=== PATIENT | female | born 1960 | race African-American/Black ===

== ENCOUNTER 2021-01-06 15:43 | Outpatient (REF) | payer OTHER, SELFPAY ==
--- NOTE | ~2021-01-06 | MM_ITS ---
EXAMINATION: MM SCREENING DIGITAL BREAST TOMOSYNTHESIS, BILATERAL CLINICAL INFORMATION: Screening. Asymptomatic. The lifetime risk of breast cancer based on the Tyrer-Cuzick Model is 9%. COMPARISON: Mammography: 04/29/2018, outside exam 01/20/2014 ([place]). TECHNIQUE: Digital breast tomosynthesis is performed in both the craniocaudal and mediolateral oblique views along with computer-aided detection (CAD). Synthesized 2D images are generated from the tomosynthesis. Additional left CC view is provided. FINDINGS: There are scattered areas of fibroglandular density (ACR BI-RADS breast composition Category b). There are no significant masses, abnormal calcifications, or other abnormalities. Parenchymal pattern is similar to prior studies. The axilla and skin contours are unremarkable. No significant changes. MM/MM tomosynthesis screening BI IMPRESSION: No mammographic evidence of malignancy. ASSESSMENT: BI-RADS 1: Negative RECOMMENDATION: Routine annual mammography screening. This patient's information was entered into a reminder system with a target due date for their next mammogram.
== END 2021-01-06 15:44 | disposition home or self-care (01) ==
LOC: HO.MAMMO 15:43
PROVIDERS: PCP Internal Medicine; Visit Provider Advanced Practice Midwife
DX: Z12.31 Encounter for screening mammogram for malignant neoplasm of breast (principal)
CPT/HCPCS: 77063; 77067

== ENCOUNTER 2021-03-10 13:25 | Emergency (ER) | payer OTHER, SELFPAY ==
--- NOTE | ~2021-03-10 | XR_ITS ---
EXAMINATION: XR CERVICAL SPINE CLINICAL INFORMATION: Chronic left upper extremity numbness and pain COMPARISON: None TECHNIQUE: 3 views of the cervical spine were obtained. FINDINGS: Bone alignment is normal. No fracture or dislocation is seen. There is degenerative spondylosis and degenerative disc disease from C3-C4 to C6-C7. 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 Prevertebral soft tissues are normal. XR/XR cervical spine 3V IMPRESSION: Multilevel degenerative changes.
--- NOTE | ~2021-03-10 | CT_ITS ---
EXAMINATION: CTA CHEST PE STUDY CLINICAL INFORMATION: L sided pain r/o PE COMPARISON: No pertinent prior studies are available for comparison. TECHNIQUE: Prior to contrast administration, noncontrast localization images were obtained. After the administration of 70 mL of Omnipaque 350 IV contrast, contiguous thin slice helical images were obtained through the thorax. Reformatted MIP images in the coronal and sagittal planes were obtained at the acquisition workstation. This CT examination was performed using dose optimization techniques as appropriate, variously including the following: *Automated exposure control *Adjustment of mA and/or kV according to patient size (this includes techniques or standardized protocols for targeted exams where dose is matched to indication/reason for exam; i.e. extremities or head) *Use of iterative reconstruction technique DLP: 439 mGy-cm. FINDINGS: The bolus timing on this study was acceptable for visualization of the pulmonary arterial tree. There are no intraluminal pulmonary arterial filling defects present to suggest pulmonary embolism. The lungs are clear. No abnormal pulmonary nodules or masses are appreciated. No significant hilar or mediastinal adenopathy. There is no evidence of pleural effusion or pneumothorax. The heart is normal in size. No evidence of ventricular septal bowing or right heart strain. Great vessels are normal. Otherwise the mediastinum is unremarkable. There is no pericardial effusion or pericardial thickening. Limited evaluation of the upper abdominal viscera is unremarkable. CT/CT angio chest PE protocol IMPRESSION: No evidence for pulmonary emboli. No focal airspace disease. VTE: Negative
--- NOTE | ~2021-03-10 | XR_ITS ---
EXAMINATION: XR CHEST CLINICAL INFORMATION: Chest pain COMPARISON: Chest x-ray September 06, 2018 TECHNIQUE: Frontal view of the chest was obtained. 1559 hours FINDINGS: No significant abnormality is noted involving the heart, lungs, mediastinum, bony thorax or soft tissues. XR/XR chest 1V IMPRESSION: Unremarkable examination.
[2021-03-10 13:36] VITALS: BP 125/68; PULSE 83; RESP 18; TEMP 37.1; O2SAT 98; BMI 41.1
--- NOTE | 2021-03-10 15:43 | ED.GENADULT ---
HPI - General Adult General Chief complaint: General Medical Stated complaint: CHEST PRESSURE Time Seen by Provider: 03/10/21 15:41 Source: patient Mode of arrival: ambulatory Limitations: no limitations History of Present Illness HPI narrative: 61 yo female with HTN was on the phone felt a pop in her back then felt short of breath then pressure on her chest upper abdomen hot flashes, this lasted approx 15 to 30 minutes and it was improved MD complaint: chest pain Onset (ago): hour(s) (2pm today) Location: chest and abdomen Radiation: other (felt it in her arm though has had chronic L arm pain and tingling since October) Quality: dull and constant Pain Consistency: now resolved Relieving factors: none Exacerbating factors: movement Associated symptoms: shortness of breath Treatments prior to arrival: none Related Data Allergies Allergy/AdvReac Type Severity Reaction Status Date / Time No Known Allergies Allergy Unverified 05/09/20 15:40 [No Known Allergies*] Review of Systems Review of Systems: Constitutional : No Weight loss, No Fever, No Chills ENT/Mouth : No sore throat, No Rhinorrhea Eyes: No Eye Pain, No Swelling Cardiovascular : pos Chest Pain, pos SOB, no Dyspnea on Exertion, No Orthopnea, No Edema, No Palpitations Respiratory : No Cough, No Sputum Gastrointestinal : no Nausea, No Vomiting, No Diarrhea, No abdominal Pain, No Hematochezia, No Melena Genitourinary : No Dysuria, No Urinary Frequency Musculoskeletal : No joint pain, No Myalgias, No Joint Swelling Skin : No Skin Lesions, No rash Neuro : No Weakness, No Numbness, No Dizziness, No Headache Psych : No Anxiety/Panic, No Depression Heme/Lymph: No Bruising, No Lymphadenopathy Endocrine : No Polyuria, No Polydipsia All other systems reviewed and are negative [facility] Past Medical History Attestation statement: The following information was validated with the patient. Medical History Hypertension Surgical History Total knee replacement status Social History Social History (Updated 03/10/21 @ 16:10 by Shiloh Juinor DO) Patient Tobacco Use Status: Never used Tobacco Use of substances other than those prescribed or required for medical reasons: No Advance Directives: No Advance Directives Information Provided: Yes Patient : No Physical Exam Vital Signs: Vital Signs: Last Vital Signs Temp 98.2 F 03/10/21 18:30 Pulse 75 03/10/21 18:30 Resp 16 03/10/21 18:30 BP 115/70 03/10/21 18:30 Pulse Ox 99 03/10/21 18:30 Body Mass Index 41.1 Appearance: Alert. Oriented X3. No acute distress. Eyes: Pupils equal, round and reactive to light. ENT: Pharynx normal. Neck: Normal inspection. Neck supple. CVS: Normal heart rate and rhythm. Pulses normal. Respiratory: No respiratory distress. Breath sounds normal. Abdomen: Soft and non-tender. Back: ttp upper left back under scapula Skin: Skin warm and dry. Normal skin color. Normal skin turgor. Extremities: No lower extremity edema. No calf ttp has puffiness to extremities but states this has been several years and there is no pitting edema noted Neuro: Oriented X 3. No motor deficit. No sensory deficit. Course Course Course Narrative: ddimer above threshold - CTA for PE ordered CTA negative, repeat trop flat, has no symptoms, repeat EKG nonischemic stable for DC Medical Decision Making [facility] Narrative Medical decision making narrative: 61 yo female with hx of HTN here with c/o resolved upper back pain and chest pain that resolved at rest, at this time feels better will obtain labs, troponin x 2, CXR, ddimer, has no symptoms now - dispo per results and findings. Lab Data Result diagrams: 03/10/21 16:31 03/10/21 16:31 Labs: Lab Results 03/10/21 03/10/21 03/10/21 Range/Units 16:31 16:31 16:31 WBC 8.6 (4.8-10.8) X10*3/uL RBC 4.16 L (4.20-5.50) X10*6/uL Hgb 11.6 L (12.0-16.0) g/dl Hct 33.9 L (37-47) % MCV 81.5 (80-98) fL MCH 27.9 (27.0-33.0) pg MCHC 34.2 (31.0-35.0) g/dl RDW 14.9 (11.0-16.0) % Plt Count 286 (160-400) X10*3/uL MPV 9.2 L (9.4-12.3) fL Immature Gran % (Auto) 0.5 H (0.0-0.4) % Neut % (Auto) 66.7 (45-73) % Lymph % (Auto) 20.7 (20-40) % Kendall % (Auto) 6.6 (2-11) % Eos % (Auto) 4.7 H (0-4) % Baso % (Auto) 0.8 (0-2) % Lymph # (Auto) 1.8 (1.2-4.9) X10*3/uL Kendall # (Auto) 0.6 (0.1-1.2) X10*3/uL Eos # (Auto) 0.4 (0.0-0.4) X10*3/uL Baso # (Auto) 0.1 (0.0-0.2) X10*3/uL Abs Immat Gran (auto) 0.04 H (0.00-0.03) X10*3/uL Absolute Neuts (auto) 5.7 (2.0-8.3) X10*3/uL Absolute Nucleated RBC 0.000 (0.0-0.012) X10*3/uL Nucleated RBC % (auto) 0.0 (0.0-0.2) /100WBC D-Dimer 256 NG/ML Sodium 140 (135-145) mmol/L Potassium 4.2 (3.3-5.1) mmol/L Chloride 105 (96-108) mmol/L Carbon Dioxide 24 (22-29) mmol/L Anion Gap 15 (12-20) BUN 16 (9-16) mg/dL Creatinine 0.98 (0.5-1.4) mg/dL Estim Creat Clear Calc 77.0 Estimated GFR 58 Random Glucose 97 (60-115) mg/dL Calcium 10.1 (8.4-10.2) mg/dL Magnesium 2.0 (1.6-2.6) mg/dL Total Bilirubin 0.4 (0.0-1.0) mg/dL Direct Bilirubin 0.2 (0.0-0.5) mg/dL AST 20 (5-31) U/L ALT 19 (0-31) U/L Alkaline Phosphatase 115 (39-117) U/L Troponin I High Sens (<3.5-17.0) ng/L B-Natriuretic Peptide (<100) pg/mL Total Protein 7.3 (6.5-8.0) g/dL Albumin 4.2 (3.5-5.0) g/dL Lipase 83 H (8-78) U/L TSH (0.32-4.0) uIU/mL 03/10/21 03/10/21 03/10/21 Range/Units 16:31 16:31 16:31 WBC (4.8-10.8) X10*3/uL RBC (4.20-5.50) X10*6/uL Hgb (12.0-16.0) g/dl Hct (37-47) % MCV (80-98) fL MCH (27.0-33.0) pg MCHC (31.0-35.0) g/dl RDW (11.0-16.0) % Plt Count (160-400) X10*3/uL MPV (9.4-12.3) fL Immature Gran % (Auto) (0.0-0.4) % Neut % (Auto) (45-73) % Lymph % (Auto) (20-40) % Kendall % (Auto) (2-11) % Eos % (Auto) (0-4) % Baso % (Auto) (0-2) % Lymph # (Auto) (1.2-4.9) X10*3/uL Kendall # (Auto) (0.1-1.2) X10*3/uL Eos # (Auto) (0.0-0.4) X10*3/uL Baso # (Auto) (0.0-0.2) X10*3/uL Abs Immat Gran (auto) (0.00-0.03) X10*3/uL Absolute Neuts (auto) (2.0-8.3) X10*3/uL Absolute Nucleated RBC (0.0-0.012) X10*3/uL Nucleated RBC % (auto) (0.0-0.2) /100WBC D-Dimer NG/ML Sodium (135-145) mmol/L Potassium (3.3-5.1) mmol/L Chloride (96-108) mmol/L Carbon Dioxide (22-29) mmol/L Anion Gap (12-20) BUN (9-16) mg/dL Creatinine (0.5-1.4) mg/dL Estim Creat Clear Calc Estimated GFR Random Glucose (60-115) mg/dL Calcium (8.4-10.2) mg/dL Magnesium (1.6-2.6) mg/dL Total Bilirubin (0.0-1.0) mg/dL Direct Bilirubin (0.0-0.5) mg/dL AST (5-31) U/L ALT (0-31) U/L Alkaline Phosphatase (39-117) U/L Troponin I High Sens 23.4 H* (<3.5-17.0) ng/L B-Natriuretic Peptide 30 (<100) pg/mL Total Protein (6.5-8.0) g/dL Albumin (3.5-5.0) g/dL Lipase (8-78) U/L TSH 0.57 (0.32-4.0) uIU/mL 03/10/21 Range/Units 18:49 WBC (4.8-10.8) X10*3/uL RBC (4.20-5.50) X10*6/uL Hgb (12.0-16.0) g/dl Hct (37-47) % MCV (80-98) fL MCH (27.0-33.0) pg MCHC (31.0-35.0) g/dl RDW (11.0-16.0) % Plt Count (160-400) X10*3/uL MPV (9.4-12.3) fL Immature Gran % (Auto) (0.0-0.4) % Neut % (Auto) (45-73) % Lymph % (Auto) (20-40) % Kendall % (Auto) (2-11) % Eos % (Auto) (0-4) % Baso % (Auto) (0-2) % Lymph # (Auto) (1.2-4.9) X10*3/uL [place] # (Auto) (0.1-1.2) X10*3/uL Eos # (Auto) (0.0-0.4) X10*3/uL Baso # (Auto) (0.0-0.2) X10*3/uL Abs Immat Gran (auto) (0.00-0.03) X10*3/uL Absolute Neuts (auto) (2.0-8.3) X10*3/uL Absolute Nucleated RBC (0.0-0.012) X10*3/uL Nucleated RBC % (auto) (0.0-0.2) /100WBC D-Dimer NG/ML Sodium (135-145) mmol/L Potassium (3.3-5.1) mmol/L Chloride (96-108) mmol/L Carbon Dioxide (22-29) mmol/L Anion Gap (12-20) BUN (9-16) mg/dL Creatinine (0.5-1.4) mg/dL Estim Creat Clear Calc Estimated GFR Random Glucose (60-115) mg/dL Calcium (8.4-10.2) mg/dL Magnesium (1.6-2.6) mg/dL Total Bilirubin (0.0-1.0) mg/dL Direct Bilirubin (0.0-0.5) mg/dL AST (5-31) U/L ALT (0-31) U/L Alkaline Phosphatase (39-117) U/L Troponin I High Sens 24.9 H* (<3.5-17.0) ng/L B-Natriuretic Peptide (<100) pg/mL Total Protein (6.5-8.0) g/dL Albumin (3.5-5.0) g/dL Lipase (8-78) U/L TSH (0.32-4.0) uIU/mL ECG Data Attestation: I personally reviewed and interpreted this ECG as follows: Interpretation: Rate: 64 Rhythm: NSR [place]: left, LVH Normal P waves. Normal CHARLEEN. Normal QRS complex. ST T wave : nonspecific, no MINA qTC: normal prior studies: nonspecific changes flatter t waves slightly increased from 2019 The study has been interpreted contemporaneously by me. EKG #2 Rate: 54 Rhythm: sinus bradycardia [place]: normal LVH Normal P waves. Normal CHARLEEN. Normal QRS complex. ST T wave : normal no MINA qTC: normal prior studies: stickers were moved by tech in better position, no acute ischemia no change from priors The study has been interpreted contemporaneously by me. . Scores Heart Score History: -0- slightly suspicious ECG: -0- normal Age: -1- >45 - <65 Risk factory: -1- 1 or 2 risk factors Troponin: -0- < or = normal limit Score: 2 Risk: 1.7% Discharge Plan Discharge Clinical Impression: Chest pain Qualifiers: Chest pain type: unspecified Qualified Code(s): R07.9 - Chest pain, unspecified Patient Disposition: Home, Self-Care Instructions: Chest Pain (ED) Additional Instructions: return to ED for any worsening symptoms or concerns TECHNIQUE: 3 views of the cervical spine were obtained. FINDINGS: Bone alignment is normal. No fracture or dislocation is seen. There is degenerative spondylosis and degenerative disc disease from C3-C4 to C6-C7. 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 Prevertebral soft tissues are normal. XR/XR cervical spine 3V IMPRESSION: Multilevel degenerative changes. Referrals: Araseli Gutierrez MD [Primary Care Provider] - 2 days (follow up with outpatient stress test given your family's risk factors)
[2021-03-10 16:37] LABS: MANUAL DIFF FLAG NO
[2021-03-10 16:39] LABS: Basophils Absolute Auto 0.1 X10*3/uL (0.0-0.2); Basophils Percent Auto 0.8 % (0-2); Eosinophils Absolute Auto 0.4 X10*3/uL (0.0-0.4); Eosinophils Percent Auto 4.7 % (0-4); Hematocrit 33.9 % (37-47); Hemoglobin 11.6 g/dl (12.0-16.0); Imm Gran Abs Auto 0.04 X10*3/uL (0.00-0.03); Imm Gran Pct Auto 0.5 % (0.0-0.4); Lymphocytes Absolute Auto 1.8 X10*3/uL (1.2-4.9); Lymphocytes Percent Auto 20.7 % (20-40); Mean Corpuscular HGB Conc 34.2 g/dl (31.0-35.0); Mean Corpuscular Hemoglobin 27.9 pg (27.0-33.0); Mean Corpuscular Volume 81.5 fL (80-98); Mean Platelet Volume 9.2 fL (9.4-12.3); Monocytes Absolute Auto 0.6 X10*3/uL (0.1-1.2); Monocytes Percent Auto 6.6 % (2-11); Neutrophils Absolute Auto 5.7 X10*3/uL (2.0-8.3); Neutrophils Percent Auto 66.7 % (45-73); Platelet Count 286 X10*3/uL (160-400); Red Blood Count 4.16 X10*6/uL (4.20-5.50); Red Cell Distribution Width 14.9 % (11.0-16.0); White Blood Count 8.6 X10*3/uL (4.8-10.8)
[2021-03-10 16:48] LABS: D Dimer 256 NG/ML
[2021-03-10 17:05] LABS: Alanine Aminotransferase 19 U/L (0-31); Albumin Level 4.2 g/dL (3.5-5.0); Alkaline Phosphatase 115 U/L (39-117); Anion Gap 15 (12-20); Aspartate Amino Transferase 20 U/L (5-31); B Type Natriuretic Peptide 30 pg/mL (<100); Bilirubin Direct 0.2 mg/dL (0.0-0.5); Bilirubin Total 0.4 mg/dL (0.0-1.0); Blood Urea Nitrogen 16 mg/dL (9-16); Calcium 10.1 mg/dL (8.4-10.2); Carbon Dioxide 24 mmol/L (22-29); Chloride 105 mmol/L (96-108); Estimated Glomerular Filt Rate 58; Glucose Random 97 mg/dL (60-115); Lipase 83 U/L (8-78); Potassium 4.2 mmol/L (3.3-5.1); Sodium 140 mmol/L (135-145); Total Protein 7.3 g/dL (6.5-8.0)
[2021-03-10 17:06] LABS: Troponin-I High Sensitivity 23.4 ng/L (<3.5-17.0)
[2021-03-10 17:21] LABS: TSH reflex Free T4 0.57 uIU/mL (0.32-4.0)
[2021-03-10] MEDS: Aspirin 81 MG TAB.CHEW 162 MG PO (17:48)
[2021-03-10] MEDS: iohexoL 350 MG/ML 100 ML INFUS..BTL IV (18:04)
[2021-03-10 18:30] VITALS: BP 115/70; PULSE 75; RESP 16; TEMP 36.8; O2SAT 99
[2021-03-10 19:28] LABS: Troponin-I High Sensitivity 24.9 ng/L (<3.5-17.0)
--- NOTE | 2021-03-10 19:36 | ECG_ITS ---
Test Reason : CP Blood Pressure : / mmHG Vent. Rate : 054 BPM Atrial Rate : 054 BPM P-R Int : 160 ms QRS Dur : 082 ms QT Int : 480 ms P-R-T Axes : 054 005 026 degrees QTc Int : 455 ms Sinus bradycardia with Premature atrial complexes Minimal voltage criteria for LVH, may be normal variant Borderline ECG When compared with ECG of 10-MAR-2021 14:06, Premature atrial complexes are now Present Referred By: Shiloh Junior Electronically Signed By:ISABEL CLARKE MD
--- NOTE | 2021-03-10 19:37 | ECG_ITS ---
Test Reason : CHEST PAIN Blood Pressure : / mmHG Vent. Rate : 064 BPM Atrial Rate : 064 BPM P-R Int : 156 ms QRS Dur : 078 ms QT Int : 404 ms P-R-T Axes : 067 004 030 degrees QTc Int : 416 ms Normal sinus rhythm with sinus arrhythmia Minimal voltage criteria for LVH, may be normal variant Nonspecific T wave abnormality Abnormal ECG When compared with ECG of 09-FEB-2019 10:05, No significant change was found Referred By: Shiloh Junior Electronically Signed By:ISABEL CLARKE MD
== END 2021-03-10 19:56 | disposition home or self-care (01) ==
PROVIDERS: Emergency Provider Emergency Medicine; PCP Internal Medicine
DX: R07.9 Chest pain, unspecified (principal); I10 Essential (primary) hypertension
CPT/HCPCS: 36415; 71045; 71275; 72040; 80048; 80076; 83690; 83735; 83880; 84443; 84484; 85025; 85379; 93005; 99284; Q9967

== ENCOUNTER → 2021-05-15 15:27 | Outpatient (BNVA) | payer OTHER, SELFPAY | PROVIDERS: PCP Internal Medicine; Visit Provider Surgery Vascular Surgery ==

== ENCOUNTER 2021-06-05 12:57 | Outpatient (REF) | payer OTHER, SELFPAY ==
--- NOTE | ~2021-06-05 | US_ITS ---
EXAMINATION: US VENOUS DOPPLER LOWER EXTREMITY, BILATERAL CLINICAL INFORMATION: Bilateral lower extremity varicose veins. COMPARISON: None TECHNIQUE: Color-flow triplex imaging and compression Doppler were performed to evaluate both the deep and the superficial systems bilaterally. To evaluate the superficial system, the examination was performed in the upright position. Color-flow Doppler ultrasound and compression ultrasound were utilized. In addition, maneuvers were utilized to demonstrate reflux. FINDINGS: 1. DEEP VENOUS ULTRASOUND OF THE RIGHT LOWER EXTREMITY: Common Femoral Vein: Compressible, normal respiratory variation and augmented flow. Femoral Vein: Compressible, normal color flow and augmentation. Popliteal Vein: Compressible, normal augmentation. Deep Reflux: There is no evidence of reflux in the deep system in either the common femoral vein or the popliteal vein. There is no evidence of a Goel's cyst. 2. SUPERFICIAL ULTRASOUND WITH DOPPLER OF RIGHT LOWER EXTREMITY GREAT SAPHENOUS VEIN: Saphenofemoral Junction: 0.9 cm; reflux: No evidence of reflux. Max Diameter: 0.9 Min Diameter: 0.3 Reflux: No evidence of reflux. DUPLICATED MEDIAL GREAT SAPHENOUS VEIN: Max Diameter: None imaged Reflux: N/A DUPLICATED LATERAL GREAT SAPHENOUS VEIN: Diameter: 0.3 cm Reflux: No reflux. SMALL SAPHENOUS VEIN: Saphenopopliteal Junction: 0.4 cm; reflux: No evidence of reflux. Min Diameter: 0.2 Reflux: No evidence of reflux. VEIN OF GIACOMINI: None imaged. PERFORATORS: Location: Proximal and mid calf, measuring 3 mm each. Reflux: No reflux. VARICOSITIES: Location: None imaged. Reflux: N/A 3. DEEP VENOUS ULTRASOUND OF THE LEFT LOWER EXTREMITY: Common Femoral Vein: Compressible, normal respiratory variation and augmented flow. Femoral Vein: Compressible, normal color flow and augmentation. Popliteal Vein: Compressible, normal augmentation. Deep Reflux: There is no evidence of reflux in the deep system in either the common femoral vein or the popliteal vein. There is no evidence of a Goel's cyst. 4. SUPERFICIAL ULTRASOUND WITH DOPPLER OF LEFT LOWER EXTREMITY GREAT SAPHENOUS VEIN: Saphenopopliteal Junction/Proximal Thigh: 0.5 cm; reflux: Greater than 3 seconds of reflux. Max Diameter: 0.5 Min Diameter: 0.2 Reflux: There is reflux present within the proximal thigh, and at the knee. DUPLICATED MEDIAL GREAT SAPHENOUS VEIN: Max Diameter: 0.4 cm Reflux: No reflux. DUPLICATED LATERAL GREAT SAPHENOUS VEIN: Diameter: None imaged. Reflux: N/A SMALL SAPHENOUS VEIN: Saphenofemoral Junction: 0.3 cm; reflux: No evidence of reflux. Min Diameter: 0.1 Reflux: No evidence of reflux. VEIN OF GIACOMINI: None imaged. PERFORATORS: Location: Proximal calf measuring 3 mm. Reflux: Greater than 3 seconds of reflux. VARICOSITIES: Location: None imaged. Reflux: N/A US/US venous duplex LE BI IMPRESSION: 1. Left great saphenous venous insufficiency. 2. No evidence of right great saphenous venous insufficiency. 3. No evidence of small saphenous venous insufficiency involving either leg. 4. No evidence of deep venous insufficiency or DVT.
== END 2021-06-05 12:58 | disposition home or self-care (01) ==
LOC: HO.US 12:57
PROVIDERS: PCP Internal Medicine; Visit Provider Surgery Vascular Surgery
DX: I83.893 Varicose veins of bilateral lower extremities with other complications (principal); I83.11 Varicose veins of right lower extremity with inflammation
CPT/HCPCS: 93970

== ENCOUNTER 2022-02-09 09:27 | Outpatient (REF) | payer OTHER, SELFPAY ==
--- NOTE | ~2022-02-09 | XR_ITS ---
EXAMINATION: XR KNEE, RIGHT XR KNEE, LEFT XR KNEE STANDING, BILATERAL CLINICAL INFORMATION: Pain COMPARISON: Lateral knee radiograph from 03/19/2020 TECHNIQUE: Single view of the bilateral knees standing, 2 views of each knee FINDINGS: RIGHT: No acute visible fracture or dislocation. Moderate severe multicompartment degenerative changes. Severe narrowing of the medial femorotibial compartment. Moderate narrowing of the lateral patellofemoral compartment. Periarticular aspect along the superior inferior margins patella as well as tibial plateau and distal femoral condyle. Joint spaces and alignment are otherwise maintained. No large knee joint effusion. Soft tissues are unremarkable. LEFT: Status post left knee arthroplasty. Orthopedic hardware is grossly intact. Joint spaces and alignment are maintained. No large knee joint effusion. Soft tissues are unremarkable. XR/XR knee LT 2V IMPRESSION: 1. No acute visible fracture or dislocation. 2. Right-sided moderate to severe multicompartment degenerative changes. 3. Status post left knee arthroplasty with intact orthopedic hardware.
--- NOTE | ~2022-02-09 | XR_ITS ---
EXAMINATION: XR KNEE, RIGHT XR KNEE, LEFT XR KNEE STANDING, BILATERAL CLINICAL INFORMATION: Pain COMPARISON: Lateral knee radiograph from 03/19/2020 TECHNIQUE: Single view of the bilateral knees standing, 2 views of each knee FINDINGS: RIGHT: No acute visible fracture or dislocation. Moderate severe multicompartment degenerative changes. Severe narrowing of the medial femorotibial compartment. Moderate narrowing of the lateral patellofemoral compartment. Periarticular aspect along the superior inferior margins patella as well as tibial plateau and distal femoral condyle. Joint spaces and alignment are otherwise maintained. No large knee joint effusion. Soft tissues are unremarkable. LEFT: Status post left knee arthroplasty. Orthopedic hardware is grossly intact. Joint spaces and alignment are maintained. No large knee joint effusion. Soft tissues are unremarkable. XR/XR knee RT 2V IMPRESSION: 1. No acute visible fracture or dislocation. 2. Right-sided moderate to severe multicompartment degenerative changes. 3. Status post left knee arthroplasty with intact orthopedic hardware.
--- NOTE | ~2022-02-09 | XR_ITS ---
EXAMINATION: XR KNEE, RIGHT XR KNEE, LEFT XR KNEE STANDING, BILATERAL CLINICAL INFORMATION: Pain COMPARISON: Lateral knee radiograph from 03/19/2020 TECHNIQUE: Single view of the bilateral knees standing, 2 views of each knee FINDINGS: RIGHT: No acute visible fracture or dislocation. Moderate severe multicompartment degenerative changes. Severe narrowing of the medial femorotibial compartment. Moderate narrowing of the lateral patellofemoral compartment. Periarticular aspect along the superior inferior margins patella as well as tibial plateau and distal femoral condyle. Joint spaces and alignment are otherwise maintained. No large knee joint effusion. Soft tissues are unremarkable. LEFT: Status post left knee arthroplasty. Orthopedic hardware is grossly intact. Joint spaces and alignment are maintained. No large knee joint effusion. Soft tissues are unremarkable. XR/XR knee standing BI IMPRESSION: 1. No acute visible fracture or dislocation. 2. Right-sided moderate to severe multicompartment degenerative changes. 3. Status post left knee arthroplasty with intact orthopedic hardware.
== END 2022-02-09 09:28 | disposition home or self-care (01) ==
LOC: HO.HOSX 09:27
PROVIDERS: Visit Provider Orthopaedic Surgery
DX: M25.562 Pain in left knee (principal); M25.561 Pain in right knee
CPT/HCPCS: 73560; 73565

== ENCOUNTER 2022-07-21 09:20 | Outpatient (REF) | payer OTHER, SELFPAY ==
[2022-07-21 09:46] LABS: MANUAL DIFF FLAG NO
[2022-07-21 10:05] LABS: Basophils Absolute Auto 0.1 X10*3/uL (0.0-0.2); Basophils Percent Auto 1.5 % (0-2); Eosinophils Absolute Auto 0.5 X10*3/uL (0.0-0.4); Eosinophils Percent Auto 8.5 % (0-4); Hematocrit 34.9 % (37.0-47.0); Hemoglobin 11.8 g/dl (12.0-16.0); Imm Gran Abs Auto 0.02 X10*3/uL (0.00-0.03); Imm Gran Pct Auto 0.3 % (0.0-0.4); Lymphocytes Percent Auto 32.7 % (20-40); Mean Corpuscular HGB Conc 33.8 g/dl (31.0-35.0); Mean Corpuscular Hemoglobin 28.1 pg (27.0-33.0); Mean Corpuscular Volume 83.1 fL (80.0-98.0); Mean Platelet Volume 8.8 fL (9.4-12.3); Monocytes Absolute Auto 0.4 X10*3/uL (0.1-1.2); Monocytes Percent Auto 7.3 % (2-11); Neutrophils Percent Auto 49.7 % (45-73); Platelet Count 276 X10*3/uL (160-400); Red Cell Distribution Width 13.9 % (11.0-16.0)
[2022-07-21 11:08] LABS: Alanine Aminotransferase 25 U/L (0-31); Alkaline Phosphatase 113 U/L (39-117); Anion Gap 17 (12-20); Aspartate Amino Transferase 20 U/L (5-31); Bilirubin Total 0.5 mg/dL (0.0-1.0); Blood Urea Nitrogen 11 mg/dL (9-16); Calcium 9.8 mg/dL (8.4-10.2); Carbon Dioxide 23 mmol/L (22-29); Chloride 104 mmol/L (96-108); Estimated Glomerular Filt Rate > 60; Glucose Random 78 mg/dL (60-115); Potassium 3.8 mmol/L (3.3-5.1); Sodium 140 mmol/L (135-145); Total Protein 6.7 g/dL (6.5-8.0)
== END 2022-07-21 09:21 | disposition home or self-care (01) ==
LOC: HO.LAB 09:20
PROVIDERS: PCP Internal Medicine; Visit Provider Nurse Practitioner
DX: Z01.818 Encounter for other preprocedural examination (principal); D12.6 Benign neoplasm of colon, unspecified; E66.01 Morbid (severe) obesity due to excess calories
CPT/HCPCS: 36415; 80053; 85025

== ENCOUNTER 2022-08-24 03:41 | Emergency (ER) | payer OTHER, SELFPAY ==
--- NOTE | ~2022-08-24 | US_ITS ---
EXAMINATION: US ABDOMEN LIMITED CLINICAL INFORMATION: Right upper quadrant pain. Gallbladder.. COMPARISON: None TECHNIQUE: Imaging of the gallbladder only FINDINGS: GALLBLADDER: Normal. The gallbladder is physiologically distended without evidence of stones, sludge, polyps, wall thickening or pericholecystic fluid. COMMON BILE DUCT: Normal in caliber measuring 0.5 cm in diameter. US/US abdomen limited IMPRESSION: No evidence of acute cholecystitis.
--- NOTE | ~2022-08-24 | CT_ITS ---
EXAMINATION: CT abdomen pelvis wo IV con CLINICAL INFORMATION: Reason for Exam Epigastric/left sided abdominal pain COMPARISON: No prior CT available for comparison. TECHNIQUE: Multidetector volumetric imaging was performed from the superior aspect of the liver through the pubic symphysis 100 mL of Omnipaque 350 injected Sagittal and coronal reformatted images were obtained on the technologist's workstation. This CT examination was performed using dose optimization techniques as appropriate, variously including the following: *Automated exposure control *Adjustment of mA and/or kV according to patient size (this includes techniques or standardized protocols for targeted exams where dose is matched to indication/reason for exam; i.e. extremities or head) *Use of iterative reconstruction technique DLP: 753 mGy-cm FINDINGS: LOWER THORAX: Included lung bases are clear. HEPATOBILIARY: No focal hepatic lesions. No biliary ductal dilatation. GALLBLADDER: Gallbladder unremarkable. SPLEEN: Spleen is normal in size. PANCREAS: No focal mass or ductal dilatation. STOMACH AND GASTROINTESTINAL TRACT: Stomach is grossly unremarkable. There is sigmoid diverticulosis without CT evidence of acute diverticulitis. No CT evidence of appendicitis. ADRENALS: No adrenal nodules. KIDNEYS/URETERS: No hydronephrosis, stones or solid mass lesions. URINARY BLADDER: Partially decompressed. PELVIC VISCERA: Unremarkable PERITONEUM: No free air or fluid. LYMPH NODES: No lymphadenopathy. VASCULAR:There are aortic calcifications, no aneurysm. BONES, ABDOMINAL WALL AND SOFT TISSUES: Age-appropriate changes of the spine and skeletal system, no destructive osteolytic or osteosclerotic bone lesion found CT/CT abdomen pelvis wo IV con IMPRESSION: * No CT evidence of acute intra-abdominal process to explain patient's pain symptoms. * Diverticulosis without evidence of acute diverticulitis.
--- NOTE | ~2022-08-24 | CT_ITS ---
EXAMINATION: CT ANGIOGRAM CHEST CT ANGIOGRAM ABDOMEN CLINICAL INFORMATION: Epigastric pain. Dizziness. TECHNIQUE: Noncontrast line department supervisor imaging of the chest, abdomen, and pelvis was obtained. Following the administration of 70 mL of Omnipaque 350 intravenously, multiple axial images were then obtained through the chest and abdomen. Sagittal, coronal, and MIP oblique sagittal reformatted images were obtained on the CT workstation, uploaded to PACS, and reviewed. This CT examination was performed using dose optimization techniques as appropriate, variously including the following: *Automated exposure control. *Adjustment of mA and/or kV according to patient size (this includes techniques or standardized protocols for targeted exams where dose is matched to indication/reason for exam; i.e. extremities or head). *Use of iterative reconstruction technique. DLP: 654 mGy-cm. COMPARISON: CT abdomen and pelvis from 08/24/2022. FINDINGS: VASCULAR: Moderate motion degradation through the abdomen. Thoracic Aorta: The thoracic aorta demonstrates normal contour and caliber. Classic 3 vessel branching pattern of the aortic arch. No evidence of thoracic aortic dissection on the post contrast imaging. Coronary artery calcifications: No overt coronary artery calcifications. Abdominal Aorta: The abdominal aorta is of normal contour and caliber without evidence of dissection. Moderate calcific atherosclerotic disease Celiac Trunk: The celiac trunk and its branches opacify normally without evidence of dissection, obstruction, or flow-limiting stenosis. Mesenteric Arteries: Eccentric noncalcified indentation of the lumen of the proximal superior mesenteric artery leads to short segment 55% stenosis. The superior and inferior mesenteric arteries are normal in caliber with no focal stenosis or dissection. Renal Arteries: There is 1 right-sided and 2 left-sided renal arteries. No evidence of stenosis or dissection. Iliac Arteries: The iliac arteries are normal in course and caliber without evidence of focal stenosis or dissection. Pulmonary Arteries: Although this exam was not tailored to assess the pulmonary arteries, there are no filling defects to suggest central pulmonary emboli. Venous Structures: The inferior vena cava and portal venous system are without demonstrated abnormalities. NONVASCULAR: CHEST: Lungs: Mild bilateral dependent atelectasis. Otherwise, no diffuse or focal lung parenchymal abnormalities. No pleural effusion or pneumothorax. The airways remain patent. Mediastinum: The cardiac structures are normal in appearance. No mediastinal free fluid or gas. No pericardial effusion. No hilar, mediastinal, or axillary lymphadenopathy. ABDOMEN/PELVIS: Moderately motion degraded exam. Liver, Biliary Ducts, and Gallbladder: The liver is normal in size and attenuation without focal hepatic lesions or biliary ductal dilatation. The gallbladder is physiologically distended without radiopaque gallstones, pericholecystic fluid, or significant gallbladder wall thickening. Pancreas: The pancreas is normal in appearance. Adrenal Glands: The adrenal glands are normal in appearance. Spleen: The spleen is normal in appearance. Kidneys and Ureters: The kidneys demonstrate symmetric nephrograms without evidence of nephrolithiasis or hydronephrosis. No ureterolithiasis or hydroureter. Gastrointestinal System: The stomach is decompressed and therefore not well evaluated on this exam. The small bowel is of normal caliber without regions of abnormal wall enhancement. Diverticulosis of the descending/sigmoid colon. Otherwise, the colon is normal in appearance without focal wall thickening or pericolonic inflammatory change. Normal appendix. Intra-abdominal and Retroperitoneal Spaces: No intra-abdominal free fluid collections or gas. No mesenteric, retroperitoneal, or inguinal lymphadenopathy. MUSCULOSKELETAL: Transitional vertebral anatomy. There is lumbarization of S1. Moderate multilevel degenerative changes of the spine. Degenerative grade 1 anterolisthesis of L5 on S1. Advanced degenerative disc disease at C6-C7, C7-T1, and from T7-S1. Moderate degenerative disc disease at all additional levels. Multifocal disc bulges with posterior osseous ridging appear to lead to mild to moderate spinal canal stenoses at T8-T9, T11-T12, L1-L2, L4-L5, and L5-S1. Moderate neural foraminal stenoses from T10-T12 and L3-S1. No suspicious lytic or sclerotic osseous lesions demonstrated. Moderate subcutaneous edema within the soft tissues of the lower back. No soft tissue masses demonstrated. CT/CT angio chest aorta IMPRESSION: 1. No evidence of aortic dissection. 2. Eccentric short segment focal wall thickening of the proximal superior mesenteric artery causes 55% stenosis oblique vessel. This may represent sequela of underlying fibrofatty atherosclerotic disease although a focal dissection could have a similar appearance. 3. No additional acute abnormalities of the chest or abdomen. 4. Diverticulosis without evidence of diverticulitis. 5. 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 Most notably, there appears to be mild to moderate spinal canal stenoses at T8-T9, T11-T12, L1-L2, L4-L5, and L5-S1.
[2022-08-24 03:57] VITALS: BP 149/82; PULSE 68; RESP 26; TEMP 36.4; O2SAT 99; BMI 34.6
[2022-08-24 04:05] LABS: Appearance Urine Clear; Color Urine Yellow; Glucose Urine UA Negative (Negative); Leukocyte Esterase Urine Negative (Negative); Nitrite Urine Negative (Negative); Specific Gravity - Urine 1.015 (1.005-1.025); Urine Blood Negative (Negative); Urine Ketones Negative (Negative); Urine Protein Negative (Neg-Trace)
[2022-08-24 04:09] LABS: Bacteria Urine None Seen (None Seen); Hyaline Casts Urine 0-2 /LPF (0-2); RBC Urine 0-2 /HPF (0-2); WBC Urine 0-5 /HPF (0-5)
--- NOTE | 2022-08-24 04:23 | ECG_ITS ---
Test Reason : NASEAU Blood Pressure : / mmHG Vent. Rate : 077 BPM Atrial Rate : 077 BPM P-R Int : 142 ms QRS Dur : 080 ms QT Int : 414 ms P-R-T Axes : 056 011 052 degrees QTc Int : 468 ms Normal sinus rhythm Normal ECG When compared with ECG of 10-MAR-2021 19:36, Premature atrial complexes are no longer Present Referred By: Generic ED Physician Electronically Signed By:ISABEL CLARKE MD
[2022-08-24 04:40] LABS: Influenza A PCR NEGATIVE (Negative); Influenza B PCR NEGATIVE (Negative); Resp Syncy Virus RNA Qual PCR NEGATIVE (Negative); SARS COV2 PCR INHOUSE NEGATIVE (Negative)
[2022-08-24] MEDS: diphenhydrAMINE HCL 50 MG/ML VIAL 25 MG IVPUSH (05:53)
[2022-08-24] MEDS: ondansetron HCL 4 MG/2 ML VIAL IVPUSH ×2 (05:53→12:56)
--- NOTE | 2022-08-24 07:00 | ED.GENADULT ---
HPI - General Adult General Chief complaint: General Medical Stated complaint: n/v Time Seen by Provider: 08/24/22 06:40 Source: patient Mode of arrival: ambulatory History of Present Illness HPI narrative: 62-year-old female who presents with a history of hyperlipidemia an onset of epigastric/right upper quadrant pain since approximately midnight this is been associated with multiple episodes of nausea and vomiting and a few episodes of diarrhea, she denies any sick contacts and denies any urinary symptoms or and denies any previous intra-abdominal surgeries, still has her gallbladder and describes the pain is crampy in nature. She denies history of gallstones or kidney stones. Though she reports pain in the epigastric/right upper quadrant area of the triage note documents that she has had pain on the left side that resolved with Zofran and Benadryl. Related Data Home Medications Medication Instructions Recorded Confirmed amlodipine 2.5 mg tablet 2.5 mg PO DAILY 05/15/21 losartan 100 mg tablet 100 mg PO DAILY 05/15/21 naproxen 500 mg tablet 500 mg PO BID 05/15/21 hydrochlorothiazide 12.5 mg tablet 12.5 mg PO BID 07/21/22 Previous Rx's Medication Instructions Recorded peg 3350-electrolytes 236 240 ml PO Q10M 1 day #4,000 mL 07/21/22 gram-22.74 gram-6.74 gram-5.86 gram solution (Golytely) ondansetron 4 mg disintegrating 4 mg PO Q8H PRN nausea and 08/24/22 tablet vomiting #14 tabs Allergies Allergy/AdvReac Type Severity Reaction Status Date / Time No Known Allergies Allergy Verified 07/21/22 08:45 [No Known Allergies*] Review of Systems Review of Systems: Pertinent positives and negatives as stated in HPI [facility] Past Medical History Source: nursing notes reviewed Medical History High cholesterol Hypertension Surgical History H/O colonoscopy History of hysterectomy Hx of tonsillectomy Total knee replacement status Social History Social History Alcohol intake: current Patient Tobacco Use Status: Never used Tobacco Smoked in Last 30 Days: No Advance Directives: No Advance Directives Information Provided: No Patient : No Physical Exam ED Vital Signs: Vital Signs - 24 hr 08/24/22 03:57 08/24/22 09:34 08/24/22 15:58 Temperature 97.5 F 97.7 F 99.7 F Pulse Rate 68 68 69 Respiratory Rate 26 H 16 16 Blood Pressure 149/82 H 159/56 H 144/56 H Pulse Oximetry 99 99 100 Oxygen Delivery Method Room Air Room Air Room Air BMI result Body Mass Index 34.6 VITAL SIGNS: Reviewed. GENERAL: Well developed, well nourished, in moderate distress. HEAD: Normocephalic/atraumatic EYES: PERRLA, EOMI EARS: Ext canals without abnormality OROPHARYNX: no oral lesions noted, posterior pharynx clear LUNGS: Normal breath sounds. No adventitious sounds or accessory muscle use. SpO2<99> CARDIOVASCULAR: Regular rate and rhythm without noted murmurs ABDOMEN: Soft, tenderness to palpation in epigastric/right upper quadrant without rebound, non-distended with bowel sounds. MUSCULOSKELETAL: No tenderness, deformities, or effusions noted on gross inspection. EXTREMITIES: No cyanosis, clubbing or edema. SKIN: Inspection of the skin reveals no rashes NEUROLOGIC: Alert and oriented x 4. Strength and sensation to light touch were grossly intact x 4. Medications Administered Discontinued Medications Generic Name Dose Route Start Last Admin Trade Name Freq PRN Reason Stop Dose Admin Diphenhydramine HCl 25 mg 08/24/22 05:40 08/24/22 05:53 Diphenhydramine Hcl 50 Mg/Ml Vial IVPUSH 08/24/22 05:41 25 mg ONCE STA Administration Sodium Chloride 1,000 mls @ 999 mls/hr 08/24/22 07:30 08/24/22 09:33 Ns IV 08/24/22 08:30 Infused .Q1H1M KALEY Infusion Iohexol 100 ml 08/24/22 16:38 08/24/22 16:38 Iohexol 350 Mg/Ml 100 Ml Infus..Btl IV 08/24/22 16:39 70 ml ONCE ONE Administration Ketorolac Tromethamine 15 mg 08/24/22 06:58 08/24/22 07:19 Ketorolac Tromethamine 30 Mg/Ml Vial IVPUSH 08/24/22 06:59 15 mg ONCE ONE Administration Ondansetron HCl 4 mg 08/24/22 05:40 08/24/22 05:53 Ondansetron Hcl 4 Mg/2 Ml Vial IVPUSH 08/24/22 05:41 4 mg ONCE ONE Administration Ondansetron HCl 4 mg 08/24/22 11:51 08/24/22 12:56 Ondansetron Hcl 4 Mg/2 Ml Vial IVPUSH 08/24/22 11:52 4 mg ONCE ONE Administration Prochlorperazine Edisylate 10 mg 08/24/22 06:59 08/24/22 07:19 Prochlorperazine Edisylate 10 Mg/2 Ml Vial IVPUSH 08/24/22 07:00 10 mg ONCE ONE Administration Medical Decision Making Medical Decision Making [facility] Narrative: 62-year-old female with history and clinical presentation of right upper quadrant/epigastric pain that apparently a history of left side back pain without urinary symptoms but having nausea and vomiting. 0924: On review of lab work I see no evidence of acute infection and the anemia is chronically stable, there is no electrolyte or renal derangement and lipase is within normal limits, urinalysis shows no evidence of acute infection and the ultrasound does not demonstrate cholecystitis. Patient was significantly uncomfortable on arrival with writhing around in the bed and will proceed with CT abdomen/pelvis as I do not see any on file previously and want to ensure that there is no evidence of stone or mass that would better explain patient's severe symptoms although patient is comfortable at this time and sleeping. 1216: I had to wait a considerable amount of time for the CT scan of the abdomen and pelvis and on review have some concerns regarding the appearance of the observable portion of the descending aorta, I did discuss this with radiology and will proceed with CT chest and abdomen to rule out dissection. Patient remains nauseous and although her urine does show evidence of marijuana symptoms are inconsistent with cyclical vomiting associated with THC. In addition, patient also describes dizziness associated with the nausea and vomiting as well as the epigastric pain. I discussed this with the patient at bedside and she understands that she will be exposed to additional radiation and understands that she will receive IV contrast. Signed out to BRITTNEE Barreto Differential Diagnosis Differential Diagnoses: The differential diagnosis associated with the presentation includes I will rule out cholecystitis, pancreatitis, gastritis, renal colic, pyelonephritis. Lab Data [facility] Lab Attestation statement: I reviewed the patient's lab results. Please see the discussion above. Result Diagrams: 08/24/22 07:21 08/24/22 07:20 Labs: Lab Results 08/24/22 08/24/22 08/24/22 Range/Units 03:59 03:59 07:20 WBC (4.8-10.8) X10*3/uL RBC (4.20-5.50) X10*6/uL Hgb (12.0-16.0) g/dl Hct (37.0-47.0) % MCV (80.0-98.0) fL MCH (27.0-33.0) pg MCHC (31.0-35.0) g/dl RDW (11.0-16.0) % Plt Count (160-400) X10*3/uL MPV (9.4-12.3) fL Immature Gran % (Auto) (0.0-0.4) % Neut % (Auto) (45-73) % Lymph % (Auto) (20-40) % Payne % (Auto) (2-11) % Eos % (Auto) (0-4) % Baso % (Auto) (0-2) % Lymph # (Auto) (1.2-4.9) X10*3/uL Payne # (Auto) (0.1-1.2) X10*3/uL Eos # (Auto) (0.0-0.4) X10*3/uL Baso # (Auto) (0.0-0.2) X10*3/uL Abs Immat Gran (auto) (0.00-0.03) X10*3/uL Absolute Neuts (auto) (2.0-8.3) x10*3/uL Absolute Nucleated RBC (0.0-0.012) X10*3/uL Nucleated RBC % (auto) (0.0-0.2) /100WBC Sodium 143 (135-145) mmol/L Potassium 3.6 (3.3-5.1) mmol/L Chloride 106 (96-108) mmol/L Carbon Dioxide 26 (22-29) mmol/L Anion Gap 15 (12-20) BUN 16 (9-16) mg/dL Creatinine 0.89 (0.5-1.4) mg/dL Estim Creat Clear Calc 76.3 Estimated GFR > 60 Random Glucose 118 H (60-115) mg/dL Calcium 9.7 (8.4-10.2) mg/dL Total Bilirubin 0.6 (0.0-1.0) mg/dL AST 14 (5-31) U/L ALT 17 (0-31) U/L Alkaline Phosphatase 101 (39-117) U/L Troponin I High Sens (<3.5-17.0) ng/L Total Protein 6.8 (6.5-8.0) g/dL Albumin 4.1 (3.5-5.0) g/dL Lipase 48 (8-78) U/L Urine Color Yellow Urine Appearance Clear Urine pH 7.0 (5.0-9.0) Ur Specific Hodges 1.015 (1.005-1.025) Urine Protein Negative (Neg-Trace) mg/dL Urine Glucose (UA) Negative (Negative) mg/dL Urine Ketones Negative (Negative) mg/dL Urine Blood Negative (Negative) Urine Nitrite Negative (Negative) Ur Leukocyte Esterase Negative (Negative) Urine RBC 0-2 (0-2) /HPF Urine WBC 0-5 (0-5) /HPF Ur Squamous Epith Cells 3-5 (0-2) /HPF Urine Bacteria None Seen (None Seen) Hyaline Casts 0-2 (0-2) /LPF Urine Opiates Screen (Not Detect) Urine Fentanyl Screen (Not Detect) Ur Barbiturates Screen (Not Detect) Ur Phencyclidine Scrn (Not Detect) Ur Amphetamines Screen (Not Detect) U Benzodiazepines Scrn (Not Detect) Urine Cocaine Screen (Not Detect) U Marijuana (THC) Screen (Not Detect) Influenza Type A (PCR) NEGATIVE (Negative) Influenza Type B (PCR) NEGATIVE (Negative) RSV RNA Qual (PCR) NEGATIVE (Negative) SARS-CoV-2 RNA (RT-PCR) NEGATIVE (Negative) 08/24/22 08/24/22 08/24/22 Range/Units 07:20 07:21 09:40 WBC 8.6 (4.8-10.8) X10*3/uL RBC 4.17 L (4.20-5.50) X10*6/uL Hgb 11.9 L (12.0-16.0) g/dl Hct 33.9 L (37.0-47.0) % MCV 81.3 (80.0-98.0) fL MCH 28.5 (27.0-33.0) pg MCHC 35.1 H (31.0-35.0) g/dl RDW 13.8 (11.0-16.0) % Plt Count 264 (160-400) X10*3/uL MPV 8.9 L (9.4-12.3) fL Immature Gran % (Auto) 0.7 H (0.0-0.4) % Neut % (Auto) 82.3 H (45-73) % Lymph % (Auto) 12.1 L (20-40) % Payne % (Auto) 3.7 (2-11) % Eos % (Auto) 0.6 (0-4) % Baso % (Auto) 0.6 (0-2) % Lymph # (Auto) 1.0 L (1.2-4.9) X10*3/uL Payne # (Auto) 0.3 (0.1-1.2) X10*3/uL Eos # (Auto) 0.1 (0.0-0.4) X10*3/uL Baso # (Auto) 0.1 (0.0-0.2) X10*3/uL Abs Immat Gran (auto) 0.06 H (0.00-0.03) X10*3/uL Absolute Neuts (auto) 7.1 (2.0-8.3) x10*3/uL Absolute Nucleated RBC 0.000 (0.0-0.012) X10*3/uL Nucleated RBC % (auto) 0.0 (0.0-0.2) /100WBC Sodium (135-145) mmol/L Potassium (3.3-5.1) mmol/L Chloride (96-108) mmol/L Carbon Dioxide (22-29) mmol/L Anion Gap (12-20) BUN (9-16) mg/dL Creatinine (0.5-1.4) mg/dL Estim Creat Clear Calc Estimated GFR Random Glucose (60-115) mg/dL Calcium (8.4-10.2) mg/dL Total Bilirubin (0.0-1.0) mg/dL AST (5-31) U/L ALT (0-31) U/L Alkaline Phosphatase (39-117) U/L Troponin I High Sens 23.8 H (<3.5-17.0) ng/L Total Protein (6.5-8.0) g/dL Albumin (3.5-5.0) g/dL Lipase (8-78) U/L Urine Color Yellow Urine Appearance Clear Urine pH 8.5 (5.0-9.0) Ur Specific Hodges 1.015 (1.005-1.025) Urine Protein Negative (Neg-Trace) mg/dL Urine Glucose (UA) Negative (Negative) mg/dL Urine Ketones Negative (Negative) mg/dL Urine Blood Negative (Negative) Urine Nitrite Negative (Negative) Ur Leukocyte Esterase Negative (Negative) Urine RBC (0-2) /HPF Urine WBC (0-5) /HPF Ur Squamous Epith Cells (0-2) /HPF Urine Bacteria (None Seen) Hyaline Casts (0-2) /LPF Urine Opiates Screen (Not Detect) Urine Fentanyl Screen (Not Detect) Ur Barbiturates Screen (Not Detect) Ur Phencyclidine Scrn (Not Detect) Ur Amphetamines Screen (Not Detect) U Benzodiazepines Scrn (Not Detect) Urine Cocaine Screen (Not Detect) U Marijuana (THC) Screen (Not Detect) Influenza Type A (PCR) (Negative) Influenza Type B (PCR) (Negative) RSV RNA Qual (PCR) (Negative) SARS-CoV-2 RNA (RT-PCR) (Negative) 08/24/22 08/24/22 Range/Units 09:40 10:15 WBC (4.8-10.8) X10*3/uL RBC (4.20-5.50) X10*6/uL Hgb (12.0-16.0) g/dl Hct (37.0-47.0) % MCV (80.0-98.0) fL MCH (27.0-33.0) pg MCHC (31.0-35.0) g/dl RDW (11.0-16.0) % Plt Count (160-400) X10*3/uL MPV (9.4-12.3) fL Immature Gran % (Auto) (0.0-0.4) % Neut % (Auto) (45-73) % Lymph % (Auto) (20-40) % Payne % (Auto) (2-11) % Eos % (Auto) (0-4) % Baso % (Auto) (0-2) % Lymph # (Auto) (1.2-4.9) X10*3/uL Payne # (Auto) (0.1-1.2) X10*3/uL Eos # (Auto) (0.0-0.4) X10*3/uL Baso # (Auto) (0.0-0.2) X10*3/uL Abs Immat Gran (auto) (0.00-0.03) X10*3/uL Absolute Neuts (auto) (2.0-8.3) x10*3/uL Absolute Nucleated RBC (0.0-0.012) X10*3/uL Nucleated RBC % (auto) (0.0-0.2) /100WBC Sodium (135-145) mmol/L Potassium (3.3-5.1) mmol/L Chloride (96-108) mmol/L Carbon Dioxide (22-29) mmol/L Anion Gap (12-20) BUN (9-16) mg/dL Creatinine (0.5-1.4) mg/dL Estim Creat Clear Calc Estimated GFR Random Glucose (60-115) mg/dL Calcium (8.4-10.2) mg/dL Total Bilirubin (0.0-1.0) mg/dL AST (5-31) U/L ALT (0-31) U/L Alkaline Phosphatase (39-117) U/L Troponin I High Sens 14.2 (<3.5-17.0) ng/L Total Protein (6.5-8.0) g/dL Albumin (3.5-5.0) g/dL Lipase (8-78) U/L Urine Color Urine Appearance Urine pH (5.0-9.0) Ur Specific Hodges (1.005-1.025) Urine Protein (Neg-Trace) mg/dL Urine Glucose (UA) (Negative) mg/dL Urine Ketones (Negative) mg/dL Urine Blood (Negative) Urine Nitrite (Negative) Ur Leukocyte Esterase (Negative) Urine RBC (0-2) /HPF Urine WBC (0-5) /HPF Ur Squamous Epith Cells (0-2) /HPF Urine Bacteria (None Seen) Hyaline Casts (0-2) /LPF Urine Opiates Screen Not Detected (Not Detect) Urine Fentanyl Screen Not Detected (Not Detect) Ur Barbiturates Screen Not Detected (Not Detect) Ur Phencyclidine Scrn Not Detected (Not Detect) Ur Amphetamines Screen Not Detected (Not Detect) U Benzodiazepines Scrn Not Detected (Not Detect) Urine Cocaine Screen Not Detected (Not Detect) U Marijuana (THC) Screen POSITIVE H (Not Detect) Influenza Type A (PCR) (Negative) Influenza Type B (PCR) (Negative) RSV RNA Qual (PCR) (Negative) SARS-CoV-2 RNA (RT-PCR) (Negative) Independent Interpretation I performed an independent interpretation of an: EKG Interpretation: Normal sinus rhythm, HR-77, no STEMI, CA/QRS/QTC is within normal limits. Radiology Impression Radiologist Impression: My interpretation is in agreement with radiologist's impression of the imaging study. External Record Review External record reviewed: Outpatient record and Prior outpatient labs Discharge Plan Discharge Clinical Impression: Nausea & vomiting, Marijuana use Patient Disposition: Home, Self-Care Instructions: Acute Nausea and Vomiting (ED), Medicinal Use of Cannabis (ED) Additional Instructions: 1. Resume all home medications as prescribed. 2. Recommend follow-up with your primary care provider and further evaluation by Gastroenterology. I would also consider a possible referral to cardiology. 3. I would refrain from the use of any further NSAIDs at this time (ibuprofen, Motrin, Naprosyn, Aleve, Excedrin) Return to the ER for any worsening of symptoms. Prescriptions: New ondansetron 4 mg tablet,disintegrating 4 mg PO Q8H PRN (Reason: nausea and vomiting) Qty: 14 0RF No Action naproxen 500 mg tablet 500 mg PO BID amlodipine 2.5 mg tablet 2.5 mg PO DAILY losartan 100 mg tablet 100 mg PO DAILY peg 3350-electrolytes [Golytely] 236-22.74-6.74 -5.86 gram recon soln 240 ml PO Q10M 1 Days Qty: 4000 0RF Rx Instructions: until fecal effluent is clear; do not exceed a total volume of 2,000 mL hydrochlorothiazide 12.5 mg tablet 12.5 mg PO BID Referrals: Araseli Gutierrez MD [Primary Care Provider] -
[2022-08-24] MEDS: Prochlorperazine Edisylate 10 MG/2 ML VIAL IVPUSH (07:19)
[2022-08-24] MEDS: Ketorolac Tromethamine 30 MG/ML VIAL 15 MG IVPUSH (07:19)
[2022-08-24 07:26] LABS: MANUAL DIFF FLAG NO
[2022-08-24 07:32] LABS: Basophils Absolute Auto 0.1 X10*3/uL (0.0-0.2); Basophils Percent Auto 0.6 % (0-2); Eosinophils Absolute Auto 0.1 X10*3/uL (0.0-0.4); Eosinophils Percent Auto 0.6 % (0-4); Hematocrit 33.9 % (37.0-47.0); Hemoglobin 11.9 g/dl (12.0-16.0); Imm Gran Abs Auto 0.06 X10*3/uL (0.00-0.03); Imm Gran Pct Auto 0.7 % (0.0-0.4); Lymphocytes Percent Auto 12.1 % (20-40); Mean Corpuscular HGB Conc 35.1 g/dl (31.0-35.0); Mean Corpuscular Hemoglobin 28.5 pg (27.0-33.0); Mean Corpuscular Volume 81.3 fL (80.0-98.0); Mean Platelet Volume 8.9 fL (9.4-12.3); Monocytes Absolute Auto 0.3 X10*3/uL (0.1-1.2); Monocytes Percent Auto 3.7 % (2-11); Neutrophils Absolute Auto 7.1 x10*3/uL (2.0-8.3); Neutrophils Percent Auto 82.3 % (45-73); Platelet Count 264 X10*3/uL (160-400); Red Blood Count 4.17 X10*6/uL (4.20-5.50); Red Cell Distribution Width 13.8 % (11.0-16.0); White Blood Count 8.6 X10*3/uL (4.8-10.8)
--- NOTE | 2022-08-24 07:32 | PC.NURSE ---
patient a/ox4 . derekrla . heart rate regular at 78 beats per minute . breathing labored and even , lungs clear throughout . skin pink warm and dry . abdomen soft , positive bowel sounds throughout . patient medicated with IVP 15 mg toradol as ordered for 10 out 10 reported pain that patient says is her body aches all over and 10 mg IVP compazine for nausea . patient given warm blanket. refusing vitals at this time r/t being uncomfortable .family and patient aware of plan of care .
[2022-08-24] MEDS: 0.9 % Sodium Chloride 1,000 ML 999 ML IV (07:40)
[2022-08-24 07:50] LABS: Alanine Aminotransferase 17 U/L (0-31); Albumin Level 4.1 g/dL (3.5-5.0); Alkaline Phosphatase 101 U/L (39-117); Anion Gap 15 (12-20); Aspartate Amino Transferase 14 U/L (5-31); Bilirubin Total 0.6 mg/dL (0.0-1.0); Blood Urea Nitrogen 16 mg/dL (9-16); Calcium 9.7 mg/dL (8.4-10.2); Carbon Dioxide 26 mmol/L (22-29); Chloride 106 mmol/L (96-108); Creatinine Clr Calc Pharmacy 76.3; Estimated Glomerular Filt Rate > 60; Glucose Random 118 mg/dL (60-115); Lipase 48 U/L (8-78); Potassium 3.6 mmol/L (3.3-5.1); Sodium 143 mmol/L (135-145); Total Protein 6.8 g/dL (6.5-8.0)
[2022-08-24 09:34] VITALS: BP 159/56; PULSE 68; RESP 16; TEMP 36.5; O2SAT 99
[2022-08-24 09:47] LABS: Appearance Urine Clear; Color Urine Yellow; Glucose Urine UA Negative (Negative); Leukocyte Esterase Urine Negative (Negative); Nitrite Urine Negative (Negative); PH 8.5 (5.0-9.0); Specific Gravity - Urine 1.015 (1.005-1.025); Urine Blood Negative (Negative); Urine Ketones Negative (Negative); Urine Protein Negative (Neg-Trace)
[2022-08-24 10:03] LABS: Troponin-I High Sensitivity 23.8 ng/L (<3.5-17.0)
[2022-08-24 10:40] LABS: Troponin-I High Sensitivity 14.2 ng/L (<3.5-17.0)
[2022-08-24 12:03] LABS: Amphetamine Screen Urine Not Detected (Not Detect); Barbiturates, Urine Not Detected (Not Detect); Benzodiazepines Screen Urine Not Detected (Not Detect); Cannabinoid Screen Urine POSITIVE (Not Detect); Cocaine Screen Urine Not Detected (Not Detect); Fentanyl, urine Not Detected (Not Detect); Opiate Screen Urine Not Detected (Not Detect); Phencyclidine Screen Urine Not Detected (Not Detect)
--- NOTE | 2022-08-24 12:30 | PC.NURSE ---
patient vomited two times after P.O. challenge of tanya trish obtained order for zofran from provider . patient aware of plan of care .
--- NOTE | 2022-08-24 13:18 | PC.NURSE ---
IV placed in left A.C by Dr. Yun . patient medicated with zofran IVP as ordered for nausea and vomiting . patient to C.T. for images . patient aware of plan of care
[2022-08-24 15:58] VITALS: BP 144/56; PULSE 69; RESP 16; TEMP 37.6; O2SAT 100
[2022-08-24] MEDS: iohexoL 350 MG/ML 100 ML INFUS..BTL IV (16:38)
[2022-08-24 19:36] VITALS: BP 134/61; PULSE 67; RESP 18; TEMP 36.9; O2SAT 95
== END 2022-08-24 19:46 | disposition home or self-care (01) ==
PROVIDERS: Emergency Provider Student in an Organized Health Care Education/Training Program; PCP Internal Medicine
DX: R11.2 Nausea with vomiting, unspecified (principal); F12.90 Cannabis use, unspecified, uncomplicated; R10.11 Right upper quadrant pain; Z20.828 Contact with and (suspected) exposure to other viral communicable diseases; I10 Essential (primary) hypertension; E78.5 Hyperlipidemia, unspecified; E66.9 Obesity, unspecified; Z68.34 Body mass index [BMI] 34.0-34.9, adult; Z79.899 Other long term (current) drug therapy
CPT/HCPCS: 0241U; 36415; 71275; 74175; 74176; 76705; 80053; 80307; 81001; 81003; 83690; 84484; 85025; 93005; 96361; 96374; 96375; 96376; 99285; J1200; J1885; J2405; Q9967

== ENCOUNTER 2022-09-24 14:57 | Outpatient (REF) | payer OTHER, SELFPAY ==
--- NOTE | ~2022-09-24 | US_ITS ---
EXAMINATION: US PELVIS CLINICAL INFORMATION: Chronic pelvic pain. COMPARISON: CT angiogram of the abdomen 08/24/2022, CT of the abdomen and pelvis 08/24/2022. TECHNIQUE: Ultrasound of the pelvis is performed using both transabdominal and transvaginal transducers along with Doppler. Transvaginal imaging is performed due to inadequate visualization transabdominally. FINDINGS: The patient is status post hysterectomy. Neither ovary could be seen. Nabothian cysts are present in the cervix with some possible calcifications. There is no free fluid. The residual cervix is seen and there is a hypoechoic area within the cervix centrally measuring 1.5 x 1.4 x 1.4 cm with central calcification, which could be a cervical fibroid. A small nabothian cyst is seen. US/US pelvic and transvaginal IMPRESSION: The patient status post hysterectomy. The residual cervix has a somewhat unusual appearance with a hypoechoic area with central calcification, possibly a cervical fibroid. Follow-up ultrasound in 6 months recommended to document stability. Neither ovary could be seen.
== END 2022-09-24 14:58 | disposition home or self-care (01) ==
LOC: HO.HMGCX 14:57
PROVIDERS: Visit Provider Pediatrics
DX: R10.2 Pelvic and perineal pain (principal)
CPT/HCPCS: 76830; 76856

== ENCOUNTER 2023-05-06 06:52 | Day surgery (SDC) | payer OTHER, SELFPAY ==
[2023-05-03 14:08] VITALS: BMI 38.1
--- NOTE | 2023-05-05 12:07 | HO.ANESPROP2 ---
HPI - Anesthesia Eval Consult details Narrative: 63yo F for Colonoscopy PMFSH Active Problems Active Problems: All Active Problems (Updated 08/25/22 @ 00:00 by Background Danestor) Right lower quadrant abdominal pain (Acute) Pre-op examination (Acute) Tubular adenoma of colon (Acute) Morbid obesity (Acute) History of left knee replacement (Acute) Osteoarthritis of right knee (Acute) Lymphedema (Acute) Varicose veins of right lower extremity with inflammation (Acute) Past Medical History Medical History High cholesterol Hypertension Surgical History Surgical History H/O colonoscopy History of hysterectomy Hx of tonsillectomy Total knee replacement status Social History Social History Alcohol intake: current Patient Tobacco Use Status: Never used Tobacco Meds Allergies Allergy/AdvReac Type Severity Reaction Status Date / Time No Known Allergies Allergy Verified 07/21/22 08:45 [No Known Allergies*] Home Medications Medication Instructions Recorded Confirmed Last Taken Type amlodipine 2.5 mg tablet 2.5 mg PO DAILY 05/15/21 Unknown History losartan 100 mg tablet 100 mg PO DAILY 05/15/21 Unknown History naproxen 500 mg tablet 500 mg PO BID 05/15/21 Unknown History hydrochlorothiazide 12.5 mg tablet 12.5 mg PO BID 07/21/22 Unknown History Exam Exam Date and Time: May 05, 2023 1207 Height,Weight and Vital Signs: Height 5 ft 5 in Weight 103.873 kg Assessment and Plan Assessment Anesthesia Assessment: Chart Reviewed
[2023-05-06 07:37] VITALS: BP 149/60; PULSE 65; RESP 18; TEMP 36.6; O2SAT 100; BMI 35.1
[2023-05-06 07:52] VITALS: BMI 36.2
--- NOTE | 2023-05-06 08:02 | P.CONAN_ITS ---
[facility] Active Problems Active Problems: All Active Problems (Updated 08/25/22 @ 00:00 by Demar Moreau) Right lower quadrant abdominal pain (Acute) Pre-op examination (Acute) Tubular adenoma of colon (Acute) Morbid obesity (Acute) History of left knee replacement (Acute) Osteoarthritis of right knee (Acute) Lymphedema (Acute) Varicose veins of right lower extremity with inflammation (Acute) Past Medical History Medical History High cholesterol Hypertension Functional capacity: independent ambulation Patient : No Family History Family history of problems with anesthesia: No Surgical History Surgical History H/O colonoscopy Hx of tonsillectomy History of hysterectomy Total knee replacement status History of Problems with Anesthesia: No Social History Social History Alcohol intake: current Patient Tobacco Use Status: Never used Tobacco Use of substances other than those prescribed or required for medical reasons: Yes Substance Use Type Other:: none 24 hours Are you DNR?: No Advance Directives: No Advance Directives Information Provided: Yes Meds Allergies Allergy/AdvReac Type Severity Reaction Status Date / Time No Known Allergies Allergy Verified 07/21/22 08:45 [No Known Allergies*] Active Medications: Current Medications Lactated Ringer's (Lr) 1,000 mls @ 100 mls/hr IVCONT .Q10H KALEY Home Medications Medication Instructions Recorded Confirmed Last Taken Type amlodipine 2.5 mg tablet 2.5 mg PO DAILY 05/15/21 05/06/23 05/06/23 History losartan 100 mg tablet 100 mg PO DAILY 05/15/21 05/06/23 05/06/23 History naproxen 500 mg tablet 500 mg PO BID 05/15/21 05/06/23 Unknown History hydrochlorothiazide 12.5 mg tablet 12.5 mg PO BID 07/21/22 05/06/23 Unknown History Exam Exam Date and Time: May 06, [id number] Height,Weight and Vital Signs: Height 5 ft 4 in Weight 95.708 kg Last Vital Signs Temp 97.8 F 05/06/23 07:37 Pulse 65 05/06/23 07:37 Resp 18 05/06/23 07:37 BP 149/60 H 05/06/23 07:37 Pulse Ox 100 05/06/23 07:37 O2 Del Method Room Air 05/06/23 07:37 Airway Mallampati Class: II TM Dist: >3cm Neck ROM: Full Heart: RRR Lungs: CTA Assessment and Plan Assessment Anesthesia Assessment: Anesthesia Plan Discussed Final Anesthetic Review Family History of Problems with Anesthesia: No History of Problems with Anesthesia: No NPO: Yes ASA Class: II Final Preanesthetic Review: Meds/Allgs Chart Reviewed, Consent Obtained/Reviewed and Anes Risks/Benef Reviewed Patient Risk: Low Procedure Risk: Low Anesthetic Plan Anesthetic Plan: MAC: Disposition: Standard PACU
[2023-05-06] MEDS: Lactated Ringers 1,000 ML 100 ML IVCONT (08:22)
--- NOTE | 2023-05-06 08:50 | MHC.SHP ---
Pre-Procedural Eval Section A Date of Service: 05/06/23 Section B Chief Complaint: History of polyps Details of Present Illness: PMH Morbid obesity Hypertension High cholesterol Osteoarthritis Tubular adenoma SURGICAL HISTORY Hysterectomy Tonsillectomy Relevant Social History: None Allergies: Allergies Allergy/AdvReac Type Severity Reaction Status Date / Time No Known Allergies Allergy Verified 07/21/22 08:45 [No Known Allergies*] Review of Systems Review of Systems Comment: 10 point ROS negative Exam Exam Comment: Gen appear: No acute distress HEENT: no icterus Chest: No overt resp distress Abd: soft, nontender, nondistended Psych: Stable affect, answering questions appropriately Neuro: A/Ox3 noted to move all extremities spontaneously Ext: no peripheral edema Plan Diagnosis/Plan: Unchanged I have reviewed the history and physical and performed a pertinent physical examination on my patient. No changes have occurred unless specified. Time Spent With Patient Time: Total time managing care of this patient today ____ minutes.
--- NOTE | 2023-05-06 08:52 | P.OP_ITS ---
Operative Note Operative Note Date of Service: 05/06/23 Narrative: Procedure: Colonoscopy Indication: Personal history of polyps Endoscopist: Aylin Rae MD Anesthesia Provider: Dr Johanne Milian Anesthesia type: MAC Instrument: Olympus [id number]-[id number] Consent: Indication, risks vs benefits, and alternatives were discussed with the patient who gave written informed consent to proceed. EKG, pulse, pulse oximetry and blood pressure were monitored throughout the procedure. Please see anesthesia flowsheet. Procedure: The patient was brought to the procedure room and placed in the left lateral decubitus position. IV medications were administered by the anesthesia provider in attendance. A digital rectal exam was performed which was normal. A distal attachment cap was affixed to the tip of the colonoscope which was then inserted through the anus and advanced through the colon to the cecum at 80 cm,and terminal ileum. Mucosa was carefully examined under high definition white light as the instrument was slowly withdrawn in a retrograde panoramic fashion. Retroflexion was performed in rectum. The procedure was not difficult. There were no immediate obvious complications. The quality of the prep was BBPS: 3+2+3 = adequate Withdrawal time 7 minutes. Limitations: No limitations. Findings: Mucosa: Normal to cecum and terminal ileum. Protruding lesions: * Medium internal hemorrhoids without stigmata of recent bleeding. Excavated lesions: * Numerous small and medium mouthed diverticula in whole colon L >R. Impression: 1. Normal colon and terminal ileum mucosa 2. Diverticulosis 3. Internal hemorrhoids Recommendations: - Repeat colonoscopy in 10 years
[2023-05-06 09:23] VITALS: BP 110/68; PULSE 64; RESP 16; TEMP 36.7; O2SAT 97
[2023-05-06 09:38] VITALS: BP 100/51; PULSE 51; RESP 16; TEMP 36.7; O2SAT 98
--- NOTE | 2023-05-06 10:32 | HO.POSTANES ---
Post Anesthesia Evaluation Post Anesthesia Evaluation Date of Service: 05/06/23 Vital Signs: Vital Signs Temp Pulse Resp BP Pulse Ox O2 Del Method 05/06/23 09:38 98.1 F 51 16 100/51 L 98 Room Air 05/06/23 09:23 98.1 F 64 16 110/68 97 Room Air 05/06/23 07:37 97.8 F 65 18 149/60 H 100 Room Air Anesthesia: Monitored Mental Status: Awake Pain Control: Satisfactory Nausea/Vomiting: None Hydration: Adequate Anesthesia-Related Issues: No Anes. Related Issues
== END 2023-05-06 10:38 | disposition home or self-care (01) ==
PROVIDERS: PCP Internal Medicine; Visit Provider Internal Medicine
PROC: 0DJD8ZZ Inspection of Lower Intestinal Tract, Via Natural or Artificial Opening Endoscopic (ICD-10-PCS; CPT 45378; principal; 2023-05-06 08:30)
DX: Z12.11 Encounter for screening for malignant neoplasm of colon (principal); Z86.010 Personal history of colon polyps; K57.30 Diverticulosis of large intestine without perforation or abscess without bleeding; K64.8 Other hemorrhoids; R10.31 Right lower quadrant pain; E66.01 Morbid (severe) obesity due to excess calories; Z68.38 Body mass index [BMI] 38.0-38.9, adult; I10 Essential (primary) hypertension; E78.00 Pure hypercholesterolemia, unspecified; Z79.1 Long term (current) use of non-steroidal anti-inflammatories (NSAID); Z79.899 Other long term (current) drug therapy
CPT/HCPCS: 45378

== ENCOUNTER → 2023-05-06 06:52 | Outpatient (BNV) | payer OTHER, SELFPAY | PROVIDERS: PCP Internal Medicine; Visit Provider Internal Medicine | DX: Z12.11 Encounter for screening for malignant neoplasm of colon (principal); Z86.010 Personal history of colon polyps; K64.9 Unspecified hemorrhoids; K57.90 Diverticulosis of intestine, part unspecified, without perforation or abscess without bleeding | CPT/HCPCS: 45378 ==

== ENCOUNTER 2023-05-21 15:00 | Outpatient (AMB) | payer OTHER, SELFPAY ==
--- NOTE | 2023-05-21 15:02 | MHC.OFFVIS ---
Intake Vital Signs 05/21/23 15:05 Height 5 ft 4 in Weight 226 lb 3.108 oz BMI 38.8 BP 133/67 Blood Pressure Location Lt brachial Position Sitting Pulse 72 Intake Visit Reasons: s/p colon-Butch Intake Note: Patient presents to in office visit today in follow up of s/p colonoscopy. Patient underwent colonoscopy with Dr. Rae on 05/06/23. CC: Patient reports doing well and denies having any new GI symptoms today. Patient reports she woke up in the middle of the procedure. Easement Worker Required: No Accompanied by: Self / Same As Patient Allergies No Known Allergies [No Known Allergies*] Allergy (Verified 05/21/23 15:09) HPI s/p colon-Butch HPI Details Assessment & Plan (1) Pre-op examination: Code(s): Z01.818 - Encounter for other preprocedural examination Plan: She is here today to repeat her colonoscopy so we review the prep in the procedure. She tolerated the last procedure well. She has occasional cramping pain in the RLQ that will radiate around to her back. Sometimes it will move to the left. It seems to be more r/t movement than BM's. I alcoholic counselor her about possible appy involvement - SI land SLR test neg for sx. It happens at times when twisting. I offer a CT but she will watch and wait. If it recurs we can consider dicyclomine. At this point she will wait till after the colonoscopy for follow-up unless the pain returns and is severe in which case she can always come back and see me. As above we review the alarm signs and symptoms that would necessitate an ER visit. There are no prior problems with anesthesia or sedation. No ID problems. 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 (2) Tubular adenoma of colon: Comment: 2018 scope= 1 TA for hyperplastic repeat in 5 years Code(s): D12.6 - Benign neoplasm of colon, unspecified (3) Morbid obesity: Code(s): E66.01 - Morbid (severe) obesity due to excess calories (4) Right lower quadrant abdominal pain: Code(s): R10.31 - Right lower quadrant pain Orders: Orders Comprehensive Met. Panel Today D12.6 - Benign noemi plasm of colon, un specified, E66.01 - Morbid (severe) obesity due to exc ess calories, Z01. 818 - Encounter fo r other preprocedu ral examination Complete Blood Cou nt Auto Diff Today D12.6 - Benign noemi plasm of colon, un specified, E66.01 - Morbid (severe) obesity due to exc ess calories, Z01. 818 - Encounter fo r other preprocedu ral examination Medications: New peg 3350-electroly arely 236-22.74-6.74 -5.86 gram (Golyt mimi) until feca l effluent is pamela r; do not exceed a total volume of 2 ,000 mL 240 mL PO Q10M 1 day 4,000 mL 0RF Z12.11 - Encounter for screening for malignant neoplas m of colon COLONOSCOPY 05/06/23 Findings: Mucosa: Normal to cecum and terminal ileum. Protruding lesions: Medium internal hemorrhoids without stigmata of recent bleeding. Excavated lesions: Numerous small and medium mouthed diverticula in whole colon L >R. Impression: 1. Normal colon and terminal ileum mucosa 2. Diverticulosis 3. Internal hemorrhoids Recommendations: - Repeat colonoscopy in 10 years TODAY'S VISIT THE COLONOSCOPY NEEDS TO BE REPEATED in 10 years. She says that she woke up during the procedure in heard people talking, and while she did not feel any pain this unnerved her. She did very well with the dicyclomine and it made my stomach feel a lot better. She is still having trouble with tomatoes or a particular type of bread or something else that will cause her dyspepsia. She knows that broccoli will set her off. She opts to follow with her PCP for the bentyl renewals. PRN. [facility] Medical History High cholesterol Hypertension Surgical History H/O colonoscopy Hx of tonsillectomy History of hysterectomy Total knee replacement status Social History Alcohol intake: current Patient Tobacco Use Status: Never used Tobacco Review of Systems Const Reports fatigue, Denies fever(s), Denies night sweats, Denies poor appetite and Denies weight loss Eyes Details: glasses Reports requires corrective lenses ENT Reports Normal hearing present, Denies dental pain, Denies dysphagia, Denies hearing loss, Denies mouth pain, Denies odynophagia, Denies throat swelling, Denies tongue swelling and Reports other (Dentition adequate) Card Reports no additional complaints Resp Reports no additional complaints GI Denies abdominal pain, Denies melena, Denies bloating, Denies hematochezia, Denies constipation, Reports GI cramping, Denies dysphagia, Denies excessive flatus, Denies early satiety, Reports dyspepsia, Denies heartburn, Denies diarrhea, Denies nausea, Denies odynophagia, Denies vomiting and Denies hematemesis Skin/Breast Denies pruritus, Denies lesions, Denies rash and Denies jaundice Neuro Reports Normal hearing present and Denies Abnormal speech present Psych Reports abnormal sleep pattern Endo Reports fatigue Aller/Immun Denies throat swelling and Denies tongue swelling Physical Exam Vital Signs: Last Vital Signs Pulse 72 05/21/23 15:05 BP 133/67 05/21/23 15:05 BMI result Body Mass Index 38.8 Const General: cooperative, no acute distress, well developed and well groomed Nutritional Appearance: well nourished and obese Orientation/consciousness: oriented to person, oriented to place and oriented to time Limitations: No language barrier HEENT Head: Yes normocephalic and Yes atraumatic Eyes General: appearance normal, both eyes and all related structures Pupils: Equal, round and reactive pupils present Neck Neck: Yes normal visual inspection and Yes no lymphadenopathy Thyroid: Thyroid normal Resp Effort & Inspection: normal respiratory effort and able to speak in complete sentences Auscultation: clear to auscultation bilaterally Cardio Rate: regular rate Rhythm: regular rhythm Heart sounds: Normal, physiologic split S2 sound present Peripheral pulses: radial pulses present and posterior tibial pulses present GI Inspection: No distended, Yes Abdominal panniculus present and Yes obesity Palpation (GI): Soft to palpation, nontender, no guarding, not rigid and No hepatosplenomegaly present Percussion: Yes normal to percussion Auscultation: normal bowel sounds Rectal Exam - Female: deferred Skin General skin exam: no rashes or lesions noted, turgor normal, skin not dry, no jaundice, No spider nevi and no striae Rashes: no rashes Nails: normal Neuro General: oriented to person, oriented to place and oriented to time Cranial nerves: Yes Equal, round and reactive pupils present and Yes Normal hearing present Speech: No Abnormal speech present Extrem General: Yes normal to inspection, No clubbing, No cyanosis and No edema Psych Appearance: grossly normal and well kempt Mental Status: mental status grossly normal Speech and movement: Normal speech and movement present Affect: normal affect Attitude: cooperative Thought process: Normal thought process present and not confabulating Thought content: Normal thought content present Insight: Good insight present (Psych) Judgement: Good judgement present (Psych) Assessment & Plan Assessment & Plan (1) Tubular adenoma of colon: Comment: 2018 scope= 1 TA for hyperplastic repeat in 5 years Code(s): D12.6 - Benign neoplasm of colon, unspecified Plan: THE COLONOSCOPY NEEDS TO BE REPEATED in 5 years. She says that she woke up during the procedure in heard people talking, and while she did not feel any pain this unnerved her. She did very well with the dicyclomine and it made my stomach feel a lot better. She is still having trouble with tomatoes or a particular type of bread or something else that will cause her dyspepsia. She knows that broccoli will set her off. She opts to follow with her PCP for the bentyl renewals. PRN. (2) Right lower quadrant abdominal pain: Code(s): R10.31 - Right lower quadrant pain Coding Level of Care Code Est Pt Level 3 (75793) Diagnoses Tubular adenoma of colon D12.6 Right lower quadrant abdominal pain R10.31
[2023-05-21 15:05] VITALS: BP 133/67; PULSE 72; BMI 38.8
== END 2023-05-21 15:52 | disposition home or self-care (01) ==
PROVIDERS: Visit Provider Nurse Practitioner
DX: D12.6 Benign neoplasm of colon, unspecified (principal); R10.31 Right lower quadrant pain
CPT/HCPCS: 99213

== ENCOUNTER → 2023-05-21 15:00 | Outpatient (BNVA) | payer OTHER, SELFPAY | PROVIDERS: Visit Provider Nurse Practitioner ==

== ENCOUNTER 2023-07-04 14:43 | Inpatient (IN) | payer OTHER, SELFPAY ==
--- NOTE | ~2023-07-04 | CT_ITS ---
EXAMINATION: CT CHEST, ABDOMEN AND PELVIS WITH CONTRAST. CLINICAL INFORMATION: Pneumonia, abdominal pain. COMPARISON: CTA chest, abdomen and pelvis 08/24/2022. TECHNIQUE: Multidetector volumetric imaging was performed from the thoracic inlet through the pubic symphysis following administration of 85 mL Omnipaque 350 intravenous contrast. Sagittal and coronal reformatted images were obtained on the technologist's workstation. This CT examination was performed using dose optimization techniques as appropriate, variously including the following: *Automated exposure control *Adjustment of mA and/or kV according to patient size (this includes techniques or standardized protocols for targeted exams where dose is matched to indication/reason for exam; i.e. extremities or head) *Use of iterative reconstruction technique DLP: 346 and 903 mGy-cm FINDINGS: CHEST: Lung: No focal consolidation or significant groundglass disease. Central airways are patent. Mediastinum: Normal heart size. Coronary artery calcifications are seen. No pericardial effusion. No hilar or mediastinal lymphadenopathy. Normal thyroid gland. Pericardium/Pleura: No pleural effusion. No pleural mass or thickening. No pneumothorax. Chest Wall/Axilla: No lymphadenopathy by size criteria. ABDOMEN/PELVIS: Peritoneal Space: No free air or free fluid. Liver, Gallbladder, Biliary Tree: The liver is enlarged measuring 21.3 cm craniocaudally, otherwise normal in shape and attenuation. No focal hepatic lesion or biliary ductal dilatation is present. The gallbladder is unremarkable with no evidence of radiopaque gallstones, gallbladder wall thickening, or obvious pericholecystic inflammatory changes. Pancreas: Unremarkable. Spleen: Unremarkable. Adrenal Glands: Unremarkable. Kidneys and Ureters: Heterogeneous nephrogram of the left kidney. Asymmetric left-sided perinephric fat stranding. No organized drainable collection. No hydronephrosis. No nephrolithiasis. Bladder: Decompressed limiting evaluation. Gastrointestinal Tract: The stomach and the small bowel are nondilated. Normal appendix. Colonic diverticulosis without significant pericolonic fat stranding or free fluid. No evidence of bowel obstruction. Abdominal Wall: No significant hernia is appreciated. Lymphovascular Structures: No lymphadenopathy by size criteria. Atherosclerotic disease. Normal caliber abdominal aorta. Pelvic Viscera: Unremarkable. Osseous Structures: No acute or aggressive osseous findings. Degenerative changes of the spine. CT/CT abdomen pelvis w IV con IMPRESSION: 1. Asymmetric left-sided heterogeneous nephrogram with perinephric fat stranding suspicious for acute pyelonephritis. 2. Hepatomegaly. 3. Diverticulosis without findings to suspect acute diverticulitis. 4. No acute abnormality in the chest.
[2023-07-04 14:51] VITALS: BP 150/87; PULSE 75; RESP 22; TEMP 36.8; O2SAT 100; BMI 36.8
--- NOTE | 2023-07-04 14:51 | ED_ITS ---
HPI - General Adult General Chief complaint: Abdominal Pain Stated complaint: Diverticulitis flare up Time Seen by Provider: 07/04/23 16:12 Related Data Home Medications Medication Instructions Recorded Confirmed amlodipine 2.5 mg tablet 2.5 mg PO DAILY 05/15/21 05/06/23 losartan 100 mg tablet 100 mg PO DAILY 05/15/21 05/06/23 naproxen 500 mg tablet 500 mg PO BID 05/15/21 05/06/23 hydrochlorothiazide 12.5 mg tablet 12.5 mg PO BID 07/21/22 05/06/23 ascorbate calcium (vitamin C) 500 500 mg PO DAILY 05/21/23 mg tablet dicyclomine 20 mg tablet 20 mg PO QID PRN 05/21/23 magnesium oxide 400 mg PO DAILY 05/21/23 Previous Rx's Medication Instructions Recorded ondansetron 4 mg disintegrating 4 mg PO Q8H PRN nausea and 08/24/22 tablet vomiting #14 tabs Allergies Allergy/AdvReac Type Severity Reaction Status Date / Time No Known Allergies Allergy Verified 05/21/23 15:09 [No Known Allergies*] [facility] Past Medical History Medical History Right lower quadrant abdominal pain Pre-op examination Morbid obesity High cholesterol Hypertension Surgical History H/O colonoscopy Hx of tonsillectomy History of hysterectomy Total knee replacement status Social History Social History Alcohol intake: current Patient Tobacco Use Status: Never used Tobacco Advance Directives: No Advance Directives Information Provided: Yes Physical Exam ED Vital Signs: Vital Signs - 24 hr 07/04/23 14:51 07/04/23 19:27 Temperature 98.3 F 98.4 F Pulse Rate 75 65 Respiratory Rate 22 H 18 Blood Pressure 150/87 H 118/60 Pulse Oximetry 100 98 Oxygen Delivery Method Room Air Room Air BMI result Body Mass Index 36.8 Course Course Course Narrative: RME performed by Tiffanie Romero PA-C. Patient is a 63 year old assigned female at presenting to the emergency department with fever, chills, feeling unwell and being concerned she is having a diverticulitis flare. Labs and swabs ordered. Patient placed back in the waiting room pending room availability and results. Patient's disposition was determined by Dr. Yun, who created and completed her own note. Please refer to Dr. Brand's emergency medicine note for the rest of the information regarding the patient's visit on 07/04/2023. Medications Administered Discontinued Medications Generic Name Dose Route Start Last Admin Trade Name Freq PRN Reason Stop Dose Admin Sodium Chloride 1,000 mls @ 999 mls/hr 07/04/23 15:13 07/04/23 17:00 Ns IV 07/04/23 16:13 Infused .Q1H1M STA Infusion Sodium Chloride 1,000 mls @ 999 mls/hr 07/04/23 16:21 07/04/23 18:17 Ns IV 07/04/23 17:21 999 mls/hr .Q1H1M STA Administration Ceftriaxone Sodium 1 gm/ 50 mls @ 100 mls/hr 07/04/23 18:51 07/04/23 18:51 Sodium Chloride IV 07/04/23 19:20 Not Given ONCE ONE Iohexol 100 ml 07/04/23 16:55 07/04/23 16:56 Iohexol 350 Mg/Ml 100 Ml Infus..Btl IV 07/04/23 16:56 85 ml ONCE ONE Administration Morphine Sulfate 4 mg 07/04/23 16:21 07/04/23 16:30 Morphine Sulfate 4 Mg/Ml Cartridge IVPUSH 07/04/23 16:22 4 mg ONCE ONE Administration Protocol Ondansetron HCl 4 mg 07/04/23 15:13 07/04/23 15:25 Ondansetron Hcl 4 Mg/2 Ml Vial IVPUSH 07/04/23 15:14 4 mg ONCE ONE Administration Ondansetron HCl 4 mg 07/04/23 16:23 07/04/23 16:30 Ondansetron Hcl 4 Mg/2 Ml Vial IVPUSH 07/04/23 16:24 4 mg ONCE ONE Administration Potassium Chloride 40 meq 07/04/23 16:21 07/04/23 16:30 Potassium Chloride Packet 20 Meq Packet PO 07/04/23 16:22 40 meq ONCE ONE Administration Medical Decision Making Lab Data 07/04/23 15:11 07/04/23 15:11 Labs: Lab Results 07/04/23 07/04/23 07/04/23 Range/Units 15:11 16:35 19:52 WBC 14.2 H (4.8-10.8) X10*3/uL RBC 4.10 L (4.20-5.50) X10*6/uL Hgb 11.4 L (12.0-16.0) g/dl Hct 32.3 L (37.0-47.0) % MCV 78.8 L (80.0-98.0) fL MCH 27.8 (27.0-33.0) pg MCHC 35.3 H (31.0-35.0) g/dl RDW 14.3 (11.0-16.0) % Plt Count 203 (160-400) X10*3/uL MPV 9.3 L (9.4-12.3) fL Immature Gran % (Auto) 0.9 H (0.0-0.4) % Neut % (Auto) 83.8 H (45-73) % Lymph % (Auto) 6.0 L (20-40) % [place] % (Auto) 6.7 (2-11) % Eos % (Auto) 2.2 (0-4) % Baso % (Auto) 0.4 (0-2) % Lymph # (Auto) 0.9 L (1.2-4.9) X10*3/uL [place] # (Auto) 1.0 (0.1-1.2) X10*3/uL Eos # (Auto) 0.3 (0.0-0.4) X10*3/uL Baso # (Auto) 0.1 (0.0-0.2) X10*3/uL Abs Immat Gran (auto) 0.13 H (0.00-0.03) X10*3/uL Absolute Neuts (auto) 11.9 H (2.0-8.3) x10*3/uL Absolute Nucleated RBC 0.000 (0.0-0.012) X10*3/uL Nucleated RBC % (auto) 0.0 (0.0-0.2) /100WBC Sodium 138 (135-145) mmol/L Potassium 2.9 L (3.3-5.1) mmol/L Chloride 104 (96-108) mmol/L Carbon Dioxide 22 (22-29) mmol/L Anion Gap 15 (12-20) BUN 18 H (9-16) mg/dL Creatinine 1.32 (0.5-1.4) mg/dL Estim Creat Clear Calc 52.4 Estimated GFR 41 Random Glucose 117 H (60-115) mg/dL Lactic Acid 1.4 (0.5-2.0) mmol/L Calcium 9.7 (8.4-10.2) mg/dL Magnesium 2.2 (1.6-2.6) mg/dL Total Bilirubin 1.1 H (0.0-1.0) mg/dL AST 21 (5-31) U/L ALT 15 (0-31) U/L Alkaline Phosphatase 102 (39-117) U/L Troponin I High Sens 13.4 (<3.5-17.0) ng/L Total Protein 7.1 (6.5-8.0) g/dL Albumin 3.7 (3.5-5.0) g/dL Lipase 12 (8-78) U/L Urine Color Yellow Urine Appearance Clear Urine pH 7.5 (5.0-9.0) Ur Specific [place] 1.010 (1.005-1.025) Urine Protein 30 (1+) H (Neg-Trace) mg/dL Urine Glucose (UA) Negative (Negative) mg/dL Urine Ketones Trace (Negative) mg/dL Urine Blood Moderate (2+) H (Negative) Urine Nitrite Negative (Negative) Ur Leukocyte Esterase Small (1+) H (Negative) Urine RBC 3-5 H (0-2) /HPF Urine WBC 21-50 H (0-5) /HPF Ur Squamous Epith Cells 0-2 (0-2) /HPF Urine Bacteria 4+ (None Seen) Hyaline Casts 0-2 (0-2) /LPF Influenza Type A (PCR) NEGATIVE (Negative) Influenza Type B (PCR) NEGATIVE (Negative) RSV RNA Qual (PCR) NEGATIVE (Negative) SARS-CoV-2 RNA (RT-PCR) NEGATIVE (Negative) Discharge Plan Discharge Clinical Impression: Pyelonephritis Patient Disposition: Admitted As Inpatient
[2023-07-04 15:17] LABS: MANUAL DIFF FLAG NO
[2023-07-04 15:19] LABS: Basophils Absolute Auto 0.1 X10*3/uL (0.0-0.2); Basophils Percent Auto 0.4 % (0-2); Eosinophils Absolute Auto 0.3 X10*3/uL (0.0-0.4); Eosinophils Percent Auto 2.2 % (0-4); Hematocrit 32.3 % (37.0-47.0); Hemoglobin 11.4 g/dl (12.0-16.0); Imm Gran Abs Auto 0.13 X10*3/uL (0.00-0.03); Imm Gran Pct Auto 0.9 % (0.0-0.4); Lymphocytes Absolute Auto 0.9 X10*3/uL (1.2-4.9); Mean Corpuscular HGB Conc 35.3 g/dl (31.0-35.0); Mean Corpuscular Hemoglobin 27.8 pg (27.0-33.0); Mean Corpuscular Volume 78.8 fL (80.0-98.0); Mean Platelet Volume 9.3 fL (9.4-12.3); Monocytes Percent Auto 6.7 % (2-11); Neutrophils Absolute Auto 11.9 x10*3/uL (2.0-8.3); Neutrophils Percent Auto 83.8 % (45-73); Platelet Count 203 X10*3/uL (160-400); Red Cell Distribution Width 14.3 % (11.0-16.0); White Blood Count 14.2 X10*3/uL (4.8-10.8)
[2023-07-04] MEDS: ondansetron HCL 4 MG/2 ML VIAL IVPUSH ×2 (15:25→16:30)
[2023-07-04] MEDS: 0.9 % Sodium Chloride 1,000 ML 999 ML IV ×2 (15:25→18:17)
[2023-07-04 15:34] LABS: Alanine Aminotransferase 15 U/L (0-31); Albumin Level 3.7 g/dL (3.5-5.0); Alkaline Phosphatase 102 U/L (39-117); Anion Gap 15 (12-20); Aspartate Amino Transferase 21 U/L (5-31); Bilirubin Total 1.1 mg/dL (0.0-1.0); Blood Urea Nitrogen 18 mg/dL (9-16); Calcium 9.7 mg/dL (8.4-10.2); Carbon Dioxide 22 mmol/L (22-29); Chloride 104 mmol/L (96-108); Creatinine Clr Calc Pharmacy 52.4; Estimated Glomerular Filt Rate 41; Glucose Random 117 mg/dL (60-115); Lipase 12 U/L (8-78); Magnesium 2.2 mg/dL (1.6-2.6); Potassium 2.9 mmol/L (3.3-5.1); Sodium 138 mmol/L (135-145); Total Protein 7.1 g/dL (6.5-8.0)
[2023-07-04 15:56] LABS: Influenza A PCR NEGATIVE (Negative); Influenza B PCR NEGATIVE (Negative); Resp Syncy Virus RNA Qual PCR NEGATIVE (Negative); SARS COV2 PCR INHOUSE NEGATIVE (Negative)
--- NOTE | 2023-07-04 16:21 | ECG_ITS ---
Test Reason : EPIGASTRIC PAIN Blood Pressure : / mmHG Vent. Rate : 073 BPM Atrial Rate : 073 BPM P-R Int : 150 ms QRS Dur : 084 ms QT Int : 414 ms P-R-T Axes : 067 005 038 degrees QTc Int : 456 ms Sinus rhythm with marked sinus arrhythmia Minimal voltage criteria for LVH, may be normal variant ( R in aVL ) Borderline ECG When compared with ECG of 24-AUG-2022 04:33, No significant change was found Referred By: Hua Valencia Electronically Signed By:MAURILIO FERNANDEZ MD
[2023-07-04] MEDS: Potassium Chloride Packet 20 MEQ PACKET 40 MEQ PO ×2 (16:30→20:51)
[2023-07-04] MEDS: Morphine Sulfate 4 MG/ML CARTRIDGE IVPUSH (16:30)
[2023-07-04 16:43] LABS: Appearance Urine Clear; Color Urine Yellow; Glucose Urine UA Negative (Negative); Leukocyte Esterase Urine Small (1+) (Negative); Nitrite Urine Negative (Negative); PH 7.5 (5.0-9.0); UMIC TRIGGER UACC YES; Urine Blood Moderate (2+) (Negative); Urine Ketones Trace mg/dL (Negative); Urine Protein 30 (1+) mg/dL (Neg-Trace)
--- NOTE | 2023-07-04 16:45 | ED_ITS ---
HPI - General Adult General Chief complaint: Abdominal Pain Stated complaint: Diverticulitis flare up Time Seen by Provider: 07/04/23 16:12 Source: patient Mode of arrival: ambulatory History of Present Illness HPI narrative: 63 yold female with pmh Diverticulitis, high cholesterol, lymphedema, hypertension, presents to ED for left-sided abdominal pain. Patient states left upper quadrant and left lower quadrant abdominal pain since Wednesday with diarrhea, fever, chills, nausea, and vomiting. Patient believes she is having a flare up. Patient denies any coughing up blood, shortness of breath, pleurisy, recent long travel, calf pain, or leg swelling. Patient states no dysuria hematuria pain Related Data Home Medications Medication Instructions Recorded Confirmed amlodipine 2.5 mg tablet 2.5 mg PO DAILY 05/15/21 07/05/23 losartan 100 mg tablet 100 mg PO DAILY 05/15/21 07/05/23 naproxen 500 mg tablet 500 mg PO BID PRN Pain 05/15/21 07/05/23 hydrochlorothiazide 12.5 mg tablet 12.5 mg PO BID 07/21/22 07/05/23 ascorbate calcium (vitamin C) 500 500 mg PO DAILY 05/21/23 07/05/23 mg tablet dicyclomine 20 mg tablet 20 mg PO QID PRN Diarrhea 05/21/23 07/05/23 Allergies Allergy/AdvReac Type Severity Reaction Status Date / Time No Known Allergies Allergy Verified 05/21/23 15:09 [No Known Allergies*] Review of Systems 2 Review of Systems: abdominal pain, diarrhea, vomiting, Yes all other systems are reviewed and are negative PMFSH Past Medical History Medical History Right lower quadrant abdominal pain Pre-op examination Morbid obesity High cholesterol Hypertension Surgical History H/O colonoscopy Hx of tonsillectomy History of hysterectomy Total knee replacement status Social History Social History Household Members: Spouse Housing: House Do you presently have visiting nurse or other home services: No Alcohol intake: current Patient Tobacco Use Status: Never used Tobacco Use of substances other than those prescribed or required for medical reasons: Yes Substance Use Type: Marijuana Substance Use Frequency: Occasionally Last Used Substance: Weeks (ago) Currently Displaying Signs/Symptoms of Drug Intoxication Withdrawal: No Have you been hit, kicked, punched, or otherwise hurt by someone within the past year? If so, by whom?: No Do you feel safe in your current relationship?: Yes Is there a partner from a previous relationship who is making you feel unsafe now?: No Are you made to feel afraid or neglected: No Advance Directives: No Advance Directives Information Provided: Yes Do you have thoughts of harming others: None Do you have a plan to hurt others: No Plan Recently lost weight without trying: No How much weight loss: Not applicable Eating poorly because of decreased appetite: No Nutrition screen score: 0 Nutrition Risks: No Nutritional Risk Patient : No : No Poor oral hygiene: No service: No Physical Exam ED Vital Signs: Vital Signs - 24 hr 07/04/23 14:51 07/04/23 19:27 Temperature 98.3 F 98.4 F Pulse Rate 75 65 Respiratory Rate 22 H 18 Blood Pressure 150/87 H 118/60 Pulse Oximetry 100 98 Oxygen Delivery Method Room Air Room Air BMI result Body Mass Index 36.8 Const Orientation/consciousness: oriented to person, oriented to place, oriented to time and patient oriented x3 [facility] Head: Yes normal to inspection, Yes No palpable skull fracture present, Yes normocephalic and Yes atraumatic Eyes General: appearance normal, both eyes and all related structures Neck Neck: Yes normal visual inspection, Yes full ROM, Yes no lymphadenopathy, Yes no meningeal signs, Yes trachea midline, Yes supple, No anterior neck swelling and No tender Chest Chest palpation & inspection: normal inspection of the chest and normal palpation of entire chest wall Resp Effort & Inspection: normal respiratory effort and able to speak in complete sentences Auscultation: clear to auscultation bilaterally Cardio Jugular venous distension: no JVD Heart sounds: S1 normal heart sound present and S2 normal heart sound present GI Inspection: Yes normal to inspection and No abdominal wall ecchymosis Palpation (GI): Soft to palpation, not firm, Tenderness to palpation present (GI) in the LLQ and in the LUQ; not in the epigastrum, not in the RLQ and not in the RUQ, no guarding and not rigid General: Yes CVA tenderness (left flank pain) Back/Spine/Pelvis Back: CVA tenderness (left flank pain) and No back tenderness Skin General skin exam: no rashes or lesions noted, elasticity normal and turgor normal Neuro General: oriented to person, oriented to place, oriented to time, patient oriented x3, gait normal, tone normal, moves all extremities, Normal light touch and pain sensation, no meningeal signs, no focal motor deficits, CN's II-XI intact bilaterally and normal sensation to monofilament Extrem General: Yes normal to inspection, Yes full ROM and Yes capillary refill normal Psych Appearance: grossly normal, well kempt and not disheveled Medications Administered Generic Name Dose Route Start Last Admin Trade Name Freq PRN Reason Stop Dose Admin Amlodipine Besylate 2.5 mg 07/05/23 09:45 07/05/23 10:29 Amlodipine Besylate 2.5 Mg Tablet PO 2.5 mg DAILY KALEY Administration Protocol Enoxaparin Sodium 40 mg 07/04/23 20:00 07/04/23 20:51 Enoxaparin Sodium 40 Mg/0.4 Ml Syringe SUBCUT 40 mg Q24H KALEY Administration Ceftriaxone Sodium 1 gm/ 50 mls @ 100 mls/hr 07/04/23 20:00 07/04/23 21:54 Sodium Chloride IV Infused Q24H KALEY Infusion Morphine Sulfate 4 mg 07/04/23 19:51 07/05/23 06:08 Morphine Sulfate 4 Mg/Ml Cartridge IVPUSH 4 mg Q4H PRN Administration Pain, Severe (Pain Scale 7-10) Protocol Sodium Chloride 3 ml 07/05/23 00:00 07/05/23 09:03 0.9 % Sodium Chloride Flush 3 Ml Syringe IVFLUSH 3 ml QSHIFT KALEY Administration Discontinued Medications Generic Name Dose Route Start Last Admin Trade Name Freq PRN Reason Stop Dose Admin Sodium Chloride 1,000 mls @ 999 mls/hr 07/04/23 15:13 07/04/23 17:00 Ns IV 07/04/23 16:13 Infused .Q1H1M STA Infusion Sodium Chloride 1,000 mls @ 999 mls/hr 07/04/23 16:21 07/04/23 21:54 Ns IV 07/04/23 17:21 Infused .Q1H1M STA Infusion Ceftriaxone Sodium 1 gm/ 50 mls @ 100 mls/hr 07/04/23 18:51 07/04/23 18:51 Sodium Chloride IV 07/04/23 19:20 Not Given ONCE ONE Influenza Virus Vaccine 0.5 ml 07/05/23 01:19 07/05/23 01:39 Flu Vacc [id number](6mos Up)/Pf 0.5 Ml Syringe IM 07/05/23 01:20 0.5 ml .ONCE ONE Administration Iohexol 100 ml 07/04/23 16:55 07/04/23 16:56 Iohexol 350 Mg/Ml 100 Ml Infus..Btl IV 07/04/23 16:56 85 ml ONCE ONE Administration Morphine Sulfate 4 mg 07/04/23 16:21 07/04/23 16:30 Morphine Sulfate 4 Mg/Ml Cartridge IVPUSH 07/04/23 16:22 4 mg ONCE ONE Administration Protocol Ondansetron HCl 4 mg 07/04/23 15:13 07/04/23 15:25 Ondansetron Hcl 4 Mg/2 Ml Vial IVPUSH 07/04/23 15:14 4 mg ONCE ONE Administration Ondansetron HCl 4 mg 07/04/23 16:23 07/04/23 16:30 Ondansetron Hcl 4 Mg/2 Ml Vial IVPUSH 07/04/23 16:24 4 mg ONCE ONE Administration Potassium Chloride 40 meq 07/04/23 16:21 07/04/23 16:30 Potassium Chloride Packet 20 Meq Packet PO 07/04/23 16:22 40 meq ONCE ONE Administration Potassium Chloride 40 meq 07/04/23 19:51 07/04/23 20:51 Potassium Chloride Packet 20 Meq Packet PO 07/04/23 19:52 20 meq ONCE ONE Administration Medical Decision Making Medical Decision Making MDM Narrative: 63-year-old female with history of diabetes, hypertension, diverticulitis presents to the ED for left-sided specially lower quadrant pain diarrhea, nausea vomiting, fever subjective and chills. patient feels like she is having diverticulitis flare. IV fluids ordered. Pain medication ordered. Patient is sent for imaging of abdomen. Patient also states for imaging of chest make sure there is no pneumonia. Do will do a least 1 troponin EKG due to left upper quadrant abdominal pain since Wednesday. 8:00PM; CT scan shows pyelonephritis. Urine positive for infection. Patient started on IV antibiotics. Case discussed with hospitalist Dr. Mcconnell who states patient could be admitted for pyelonephritis. patient feels better after pain medication Differential Diagnosis Differential Diagnoses: The differential diagnosis associated with the presentation includes ( diverticulitis, pyelonephritis, colitis, kidney stones,) Admission/Observation Consideration of admission/observation: Escalation of care including admission/observation considered Consult Healthcare Provider Management of the patient was discussed with: Hospitalist (Dr. Hawley) Lab Data MDM Lab Attestation statement: I reviewed the patient's lab results. 07/05/23 05:17 07/05/23 05:17 Labs: Lab Results 07/04/23 07/04/23 Range/Units 15:11 16:35 WBC 14.2 H (4.8-10.8) X10*3/uL RBC 4.10 L (4.20-5.50) X10*6/uL Hgb 11.4 L (12.0-16.0) g/dl Hct 32.3 L (37.0-47.0) % MCV 78.8 L (80.0-98.0) fL MCH 27.8 (27.0-33.0) pg MCHC 35.3 H (31.0-35.0) g/dl RDW 14.3 (11.0-16.0) % Plt Count 203 (160-400) X10*3/uL MPV 9.3 L (9.4-12.3) fL Immature Gran % (Auto) 0.9 H (0.0-0.4) % Neut % (Auto) 83.8 H (45-73) % Lymph % (Auto) 6.0 L (20-40) % [place] % (Auto) 6.7 (2-11) % Eos % (Auto) 2.2 (0-4) % Baso % (Auto) 0.4 (0-2) % Lymph # (Auto) 0.9 L (1.2-4.9) X10*3/uL [place] # (Auto) 1.0 (0.1-1.2) X10*3/uL Eos # (Auto) 0.3 (0.0-0.4) X10*3/uL Baso # (Auto) 0.1 (0.0-0.2) X10*3/uL Abs Immat Gran (auto) 0.13 H (0.00-0.03) X10*3/uL Absolute Neuts (auto) 11.9 H (2.0-8.3) x10*3/uL Absolute Nucleated RBC 0.000 (0.0-0.012) X10*3/uL Nucleated RBC % (auto) 0.0 (0.0-0.2) /100WBC Sodium 138 (135-145) mmol/L Potassium 2.9 L (3.3-5.1) mmol/L Chloride 104 (96-108) mmol/L Carbon Dioxide 22 (22-29) mmol/L Anion Gap 15 (12-20) BUN 18 H (9-16) mg/dL Creatinine 1.32 (0.5-1.4) mg/dL Estim Creat Clear Calc 52.4 Estimated GFR 41 Random Glucose 117 H (60-115) mg/dL Calcium 9.7 (8.4-10.2) mg/dL Magnesium 2.2 (1.6-2.6) mg/dL Total Bilirubin 1.1 H (0.0-1.0) mg/dL AST 21 (5-31) U/L ALT 15 (0-31) U/L Alkaline Phosphatase 102 (39-117) U/L Troponin I High Sens 13.4 (<3.5-17.0) ng/L Total Protein 7.1 (6.5-8.0) g/dL Albumin 3.7 (3.5-5.0) g/dL Lipase 12 (8-78) U/L Urine Color Yellow Urine Appearance Clear Urine pH 7.5 (5.0-9.0) Ur Specific [place] 1.010 (1.005-1.025) Urine Protein 30 (1+) H (Neg-Trace) mg/dL Urine Glucose (UA) Negative (Negative) mg/dL Urine Ketones Trace (Negative) mg/dL Urine Blood Moderate (2+) H (Negative) Urine Nitrite Negative (Negative) Ur Leukocyte Esterase Small (1+) H (Negative) Urine RBC 3-5 H (0-2) /HPF Urine WBC 21-50 H (0-5) /HPF Ur Squamous Epith Cells 0-2 (0-2) /HPF Urine Bacteria 4+ (None Seen) Hyaline Casts 0-2 (0-2) /LPF Influenza Type A (PCR) NEGATIVE (Negative) Influenza Type B (PCR) NEGATIVE (Negative) RSV RNA Qual (PCR) NEGATIVE (Negative) SARS-CoV-2 RNA (RT-PCR) NEGATIVE (Negative) Independent Interpretation I performed an independent interpretation of an: CT Scan Radiology Impression Discussion of test interpretation with radiology: I have reviewed the radiologist's reading. Independent Historian Clinical information obtained from an independent historian. History obtained from or confirmed by: Spouse External Record Review External record reviewed: Other (PRior visits) Prescription Management I considered prescription management with: Antibiotic Discharge Plan Discharge Clinical Impression: Pyelonephritis Patient Disposition: Admitted As Inpatient Interventions: Admission Worksheet (ED) Last Done: 07/05/23 01:54 Discharge Date/Time: 07/05/23 01:55
[2023-07-04 16:54] LABS: Bacteria Urine 4+ (None Seen); Hyaline Casts Urine 0-2 /LPF (0-2); Squamous Epithelial Cell Urine 0-2 /HPF (0-2); UACC Culture Trigger YES; WBC Urine 21-50 /HPF (0-5)
[2023-07-04] MEDS: iohexoL 350 MG/ML 100 ML INFUS..BTL IV (16:56)
[2023-07-04 17:54] LABS: Troponin-I High Sensitivity 13.4 ng/L (<3.5-17.0)
--- NOTE | 2023-07-04 18:47 | PC.NURSE ---
patient has been resting quietly in bed, medicated per MAR, receiving second liter of fluids. patient ambulates to the bathroom with steady gait.
[2023-07-04 19:27] VITALS: BP 118/60; PULSE 65; RESP 18; TEMP 36.9; O2SAT 98
--- NOTE | 2023-07-04 19:53 | P.HPHOSP_ITS ---
History of Present Illness Date of Service: 07/04/23 Chief Complaint: Abdominal Pain This is a 63-year-old female with pertinent history of essential hypertension, mixed hyperlipidemia presents to the emergency department for evaluation of abdominal pain. Patient states she started having left-sided abdominal discomfort 2 days prior to presentation. It is associated with chills, nausea and vomiting. No dysuria or urinary hesitancy. The abdominal discomfort is constant, nonradiating and without any relieving factors. No chest pain, palpitations, shortness of breath, changes in bowel habits. Does have a history of UTI. In the emergency department, patient was found to be septic and imaging concerning for acute pyelonephritis. Review of Systems 2 Constitutional: Constitutional: Reports chills, Reports fatigue, Reports fever(s), Reports lethargy and Reports poor appetite Cardiovascular: Cardiovascular: Reports no additional cardiovascular complaints Respiratory: Respiratory: Reports no additional respiratory complaints Gastrointestinal: Gastrointestinal: Reports abdominal pain, Reports nausea and Reports vomiting Genitourinary: Genitourinary: Reports no additional female genitourinary complaints Endocrine: Endocrine: Reports fatigue [facility] Medical History Right lower quadrant abdominal pain Pre-op examination Morbid obesity High cholesterol Hypertension Pertinent family history: No family history of early CAD Surgical History H/O colonoscopy Hx of tonsillectomy History of hysterectomy Total knee replacement status Social History Alcohol intake: current Patient Tobacco Use Status: Never used Tobacco Advance Directives: No Advance Directives Information Provided: Yes Meds Allergies Allergy/AdvReac Type Severity Reaction Status Date / Time No Known Allergies Allergy Verified 05/21/23 15:09 [No Known Allergies*] Home Medications Medication Instructions Recorded Confirmed Last Taken Type amlodipine 2.5 mg tablet 2.5 mg PO DAILY 05/15/21 05/06/23 05/06/23 History losartan 100 mg tablet 100 mg PO DAILY 05/15/21 05/06/23 05/06/23 History naproxen 500 mg tablet 500 mg PO BID 05/15/21 05/06/23 Unknown History hydrochlorothiazide 12.5 mg tablet 12.5 mg PO BID 07/21/22 05/06/23 Unknown History ascorbate calcium (vitamin C) 500 500 mg PO DAILY 05/21/23 Unknown History mg tablet dicyclomine 20 mg tablet 20 mg PO QID PRN 05/21/23 Unknown History magnesium oxide 400 mg PO DAILY 05/21/23 Unknown History Physical Exam 2 Vital Signs and Narrative: Vital Signs: Last Vital Signs Temp 98.4 F 07/04/23 19:27 Pulse 65 07/04/23 19:27 Resp 18 07/04/23 19:27 BP 118/60 07/04/23 19:27 Pulse Ox 98 07/04/23 19:27 O2 Del Method Room Air 07/04/23 19:27 BMI result Body Mass Index 36.8 Middle-aged female lying in bed in no distress Neck supple, no JVD Regular rate and rhythm, S1-S2 heard Regular breath sounds bilaterally, no wheezing or crackles appreciated Abdomen with left-sided CVA tenderness, no guarding, no rigidity, no rebound tenderness Patient is awake, alert and oriented to self, place, time and person ; no focal motor deficit Psych: Normal mood No pedal edema Results Labs 07/04/23 15:11 07/04/23 15:11 Labs: Laboratory Results - last 24 hr 07/04/23 07/04/23 15:11 16:35 MCV 78.8 L MCH 27.8 MCHC 35.3 H RDW 14.3 Plt Count 203 MPV 9.3 L Immature Gran % (Auto) 0.9 H Neut % (Auto) 83.8 H Lymph % (Auto) 6.0 L [place] % (Auto) 6.7 Eos % (Auto) 2.2 Baso % (Auto) 0.4 Lymph # (Auto) 0.9 L [place] # (Auto) 1.0 Eos # (Auto) 0.3 Baso # (Auto) 0.1 Abs Immat Gran (auto) 0.13 H Absolute Neuts (auto) 11.9 H Absolute Nucleated RBC 0.000 Nucleated RBC % (auto) 0.0 Anion Gap 15 Estim Creat Clear Calc 52.4 Estimated GFR 41 Random Glucose 117 H Calcium 9.7 Magnesium 2.2 Total Bilirubin 1.1 H AST 21 ALT 15 Alkaline Phosphatase 102 Total Protein 7.1 Albumin 3.7 Lipase 12 Urine Color Yellow Urine Appearance Clear Urine pH 7.5 Ur Specific [place] 1.010 Urine Protein 30 (1+) H Urine Glucose (UA) Negative Urine Ketones Trace Urine Blood Moderate (2+) H Urine Nitrite Negative Ur Leukocyte Esterase Small (1+) H Urine RBC 3-5 H Urine WBC 21-50 H Ur Squamous Epith Cells 0-2 Urine Bacteria 4+ Hyaline Casts 0-2 Influenza Type A (PCR) NEGATIVE Influenza Type B (PCR) NEGATIVE RSV RNA Qual (PCR) NEGATIVE SARS-CoV-2 RNA (RT-PCR) NEGATIVE Imaging Radiologist's Impressions: Impressions Abdomen/Pelvis CT 07/04/23 16:53 IMPRESSION: 1. Asymmetric left-sided heterogeneous nephrogram with perinephric fat stranding suspicious for acute pyelonephritis. 2. Hepatomegaly. 3. Diverticulosis without findings to suspect acute diverticulitis. 4. No acute abnormality in the chest. Chest CT 07/04/23 16:53 IMPRESSION: 1. Asymmetric left-sided heterogeneous nephrogram with perinephric fat stranding suspicious for acute pyelonephritis. 2. Hepatomegaly. 3. Diverticulosis without findings to suspect acute diverticulitis. 4. No acute abnormality in the chest. Assessment and Plan (1) Pyelonephritis: Status: Acute Plan This is a 63-year-old female with pertinent history of essential hypertension, mixed hyperlipidemia presents to the emergency department for evaluation of abdominal pain. #. Sepsis due to left-sided acute pyelonephritis: Resuscitated with IV crystalloids. Initiating empiric IV antibiotics. Urine culture and blood culture obtained. Lactic acid pending #. Hypokalemia: Repleted #. Essential hypertension: Hold antihypertensives in the setting of sepsis. Resume as appropriate Med rec pending DVT prophylaxis: Sherylx Admit as inpatient and will require two night minimum hospital stay for IV antibiotics (as above), which is not possible in a lesser acute setting. Quality Stroke Does the patient have a stroke diagnosis?: No VTE Prior VTE?: No VTE Risk Level:: Medical - moderate - high VTE Device Contraindication: Treatment Not Indicated VTE Drug Contraindication: N/A - Med Ordered
[2023-07-04 20:09] LABS: Lactic Acid 1.4 mmol/L (0.5-2.0)
--- NOTE | 2023-07-04 20:26 | PC.NURSE ---
pt is a difficult draw, at this time only able to obtain 1 set of blood cultures. Dr Hawley is aware. attempted to call the lab x2 to notify them as well. 185 dose of ceftriaxone not given, 2000 dose to be administered.
[2023-07-04] MEDS: cefTRIAXone sodium 1 GM in 0.9 % Sodium Chloride 50 ML IV (20:50)
[2023-07-04] MEDS: Enoxaparin Sodium 40 MG/0.4 ML SYRINGE SUBCUT (20:51)
[2023-07-04 23:39] VITALS: BP 131/56; PULSE 73; RESP 18; TEMP 36.9; O2SAT 100
--- NOTE | 2023-07-05 00:42 | PC.NURSE ---
report given to [place] on S3
[2023-07-05 01:14] VITALS: BMI 37.5
[2023-07-05 01:28] VITALS: BP 110/63; PULSE 72; RESP 18; TEMP 36.6; O2SAT 100
[2023-07-05 05:27] LABS: Hemoglobin 10.3 g/dl (12.0-16.0); Mean Corpuscular HGB Conc 34.3 g/dl (31.0-35.0); Mean Corpuscular Hemoglobin 28.5 pg (27.0-33.0); Mean Corpuscular Volume 83.1 fL (80.0-98.0); Mean Platelet Volume 9.4 fL (9.4-12.3); Platelet Count 180 X10*3/uL (160-400); Red Blood Count 3.61 X10*6/uL (4.20-5.50); Red Cell Distribution Width 14.5 % (11.0-16.0); White Blood Count 10.8 X10*3/uL (4.8-10.8)
[2023-07-05 05:47] LABS: Anion Gap 13 (12-20); Blood Urea Nitrogen 14 mg/dL (9-16); Calcium 8.9 mg/dL (8.4-10.2); Carbon Dioxide 25 mmol/L (22-29); Chloride 106 mmol/L (96-108); Creatinine Clr Calc Pharmacy 52.2; Estimated Glomerular Filt Rate 40; Glucose Random 108 mg/dL (60-115); Potassium 3.5 mmol/L (3.3-5.1); Sodium 140 mmol/L (135-145)
[2023-07-05 05:50] LABS: Atypical Lymph Absolute Manual 0.1 x10*3/uL; Atypical Lymphs Percent Manual 1 % (0-6); Band Neutrophils Percent 4 % (3-5); Basophils Abs Manual 0.1 X10*3/uL (0.0-0.2); Basophils Percent Manual 1 % (0-2); Eosinophils Absolute Manual 0.3 X10*3/uL (0.0-0.4); Eosinophils Percent Manual 3 % (0-4); Lymphocytes Absolute Manual 0.4 X10*3/uL (1.2-4.9); Lymphocytes Percent Manual 4 % (20-40); Monocytes Absolute Manual 0.3 X10*3/uL (0.1-1.2); Monocytes Percent Manual 3 % (2-11); Neutrophils Absolute Manual 9.5 X10*3/uL (2.0-8.3); Neutrophils Percent Manual 84 % (45-73)
[2023-07-05 05:51] LABS: Platelet Estimate NORMAL (NORMAL); Platelet Morphology Comment NORMAL; RBC Morphology NORMAL; Rouleau PRESENT
[2023-07-05] MEDS: Morphine Sulfate 4 MG/ML CARTRIDGE IVPUSH ×2 (06:08→17:16)
[2023-07-05 07:45] VITALS: BP 121/62; PULSE 71; RESP 18; TEMP 37.1; O2SAT 98
[2023-07-05] MEDS: 0.9 % Sodium Chloride Flush 3 ML SYRINGE IVFLUSH ×2 (09:03→17:05)
--- NOTE | 2023-07-05 09:43 | P.PNIM_ITS ---
Subjective Subjective Date of Service: 07/05/23 Interval History: f/u on acute pyelonephritis with left flank pain, pain is better, no fever and WBC is now normal Physical Exam 2 Vital Signs: Vital Signs: Last Vital Signs Temp 98.7 F 07/05/23 07:45 Pulse 71 07/05/23 07:45 Resp 18 07/05/23 07:45 BP 121/62 07/05/23 07:45 Pulse Ox 98 07/05/23 07:45 O2 Del Method Room Air 07/05/23 07:45 BMI result Body Mass Index 37.5 Const: Other: General: AO X 3, no acute distress Resp: CTA bilateral CVS: S1,S2,RRR GI: +BS, NT, mild left cva tenderness Skin: No rash Neuro: motor grossly intact Psych: appropriate affect Objective Data Active Medications Acetaminophen (Acetaminophen 325 Mg Tablet) 650 mg PO Q6H PRN PRN Reason: Pain, Mild (Pain Scale 1-3) Enoxaparin Sodium (Enoxaparin Sodium 40 Mg/0.4 Ml Syringe) 40 mg SUBCUT Q24H [facility] Last Admin: 07/04/23 20:51 Dose: 40 mg Documented By: BRENDA Ceftriaxone Sodium 1 gm/ (Sodium Chloride) 50 mls @ 100 mls/hr IV Q24H [facility] Last Infusion: 07/04/23 21:54 Dose: Infused Documented By: BRENDA Melatonin (Melatonin 3 Mg Tablet) 6 mg PO BEDTIME PRN PRN Reason: Insomnia Morphine Sulfate (Morphine Sulfate 4 Mg/Ml Cartridge) 4 mg IVPUSH Q4H PRN; Protocol PRN Reason: Pain, Severe (Pain Scale 7-10) Last Admin: 07/05/23 06:08 Dose: 4 mg Documented By: JONATHAN Ondansetron HCl (Ondansetron Hcl 4 Mg/2 Ml Vial) 4 mg IVPUSH Q8H PRN PRN Reason: Nausea and Vomiting Sodium Chloride (0.9 % Sodium Chloride Flush 3 Ml Syringe) 3 ml IVFLUSH QSHIFT [facility] Last Admin: 07/05/23 09:03 Dose: 3 ml Documented By: JYOTI Labs 07/05/23 05:17 07/05/23 05:17 Labs: Laboratory Results - last 24 hr 07/04/23 07/04/23 07/04/23 15:11 16:35 19:52 MCV 78.8 L MCH 27.8 MCHC 35.3 H RDW 14.3 Plt Count 203 MPV 9.3 L Immature Gran % (Auto) 0.9 H Neut % (Auto) 83.8 H Lymph % (Auto) 6.0 L [place] % (Auto) 6.7 Eos % (Auto) 2.2 Baso % (Auto) 0.4 Lymph # (Auto) 0.9 L [place] # (Auto) 1.0 Eos # (Auto) 0.3 Baso # (Auto) 0.1 Abs Immat Gran (auto) 0.13 H Absolute Neuts (auto) 11.9 H Absolute Nucleated RBC 0.000 Nucleated RBC % (auto) 0.0 Neutrophils % (Manual) Band Neutrophils % Lymphocytes % (Manual) Atypical Lymphs % (Man) Monocytes % (Manual) Eosinophils % (Manual) Basophils % (Manual) Abs Neuts (Manual) Lymphocytes # (Manual) Atyp Lymphs # (Manual) Monocytes # (Manual) Eosinophils # (Manual) Basophils # (Manual) Platelet Estimate Plt Morphology Comment RBC Morphology Rouleaux Anion Gap 15 Estim Creat Clear Calc 52.4 Estimated GFR 41 Random Glucose 117 H Lactic Acid 1.4 Calcium 9.7 Magnesium 2.2 Total Bilirubin 1.1 H AST 21 ALT 15 Alkaline Phosphatase 102 Total Protein 7.1 Albumin 3.7 Lipase 12 Urine Color Yellow Urine Appearance Clear Urine pH 7.5 Ur Specific Worth 1.010 Urine Protein 30 (1+) H Urine Glucose (UA) Negative Urine Ketones Trace Urine Blood Moderate (2+) H Urine Nitrite Negative Ur Leukocyte Esterase Small (1+) H Urine RBC 3-5 H Urine WBC 21-50 H Ur Squamous Epith Cells 0-2 Urine Bacteria 4+ Hyaline Casts 0-2 Influenza Type A (PCR) NEGATIVE Influenza Type B (PCR) NEGATIVE RSV RNA Qual (PCR) NEGATIVE SARS-CoV-2 RNA (RT-PCR) NEGATIVE 07/05/23 05:17 MCV 83.1 MCH 28.5 MCHC 34.3 RDW 14.5 Plt Count 180 MPV 9.4 Immature Gran % (Auto) Cancelled Neut % (Auto) Cancelled Lymph % (Auto) Cancelled [place] % (Auto) Cancelled Eos % (Auto) Cancelled Baso % (Auto) Cancelled Lymph # (Auto) Cancelled [place] # (Auto) Cancelled Eos # (Auto) Cancelled Baso # (Auto) Cancelled Abs Immat Gran (auto) Cancelled Absolute Neuts (auto) Cancelled Absolute Nucleated RBC 0.000 Nucleated RBC % (auto) 0.0 Neutrophils % (Manual) 84 H Band Neutrophils % 4 Lymphocytes % (Manual) 4 L Atypical Lymphs % (Man) 1 Monocytes % (Manual) 3 Eosinophils % (Manual) 3 Basophils % (Manual) 1 Abs Neuts (Manual) 9.5 H Lymphocytes # (Manual) 0.4 L Atyp Lymphs # (Manual) 0.1 Monocytes # (Manual) 0.3 Eosinophils # (Manual) 0.3 Basophils # (Manual) 0.1 Platelet Estimate NORMAL Plt Morphology Comment NORMAL RBC Morphology NORMAL Rouleaux PRESENT Anion Gap 13 Estim Creat Clear Calc 52.2 Estimated GFR 40 Random Glucose 108 Lactic Acid Calcium 8.9 D Magnesium Total Bilirubin AST ALT Alkaline Phosphatase Total Protein Albumin Lipase Urine Color Urine Appearance Urine pH Ur Specific [place] Urine Protein Urine Glucose (UA) Urine Ketones Urine Blood Urine Nitrite Ur Leukocyte Esterase Urine RBC Urine WBC Ur Squamous Epith Cells Urine Bacteria Hyaline Casts Influenza Type A (PCR) Influenza Type B (PCR) RSV RNA Qual (PCR) SARS-CoV-2 RNA (RT-PCR) Assessment and Plan (1) Pyelonephritis: Status: Acute (2) Hypertension: Status: Acute Plan This is a 63-year-old female with pertinent history of essential hypertension, mixed hyperlipidemia presents to the emergency department for evaluation of abdominal pain. #. Sepsis due to left-sided acute pyelonephritis, no fever, wbc normal. culture pending. continue Ceftriaxone and change to PO Ceftin at discharge for 10 days din#. Hypokalemia: Repleted and resolved #. Essential hypertension: restart Norvas 2.5 mg daily, hold Losartan 100 daily, BP is normal Med rec pending DVT prophylaxis: Lovenox Need for inpt: acute pyelonephritis, sepsis being treated with IV Abx awaiting cultures Quality Stroke Does the patient have a stroke diagnosis?: No VTE Prior VTE?: No VTE Risk Level:: Medical - moderate - high VTE Device Contraindication: Treatment Not Indicated VTE Drug Contraindication: N/A - Med Ordered
--- NOTE | 2023-07-05 10:09 | PHA.MEDREC ---
Pharmacy Consult ? Medication Reconciliation Pharmacy has completed the medication reconciliation. Spoke to patient and verified medication list.
[2023-07-05] MEDS: amLODIPine Besylate 2.5 MG TABLET PO (10:29)
--- NOTE | 2023-07-05 11:13 | MHC.CM.PN ---
PT REPORTS SHE LIVES WITH HER AND IS INDEPENDENT WITH CARE PT DENIES USE OF DME OR HOME SERVICES SHE SAYS SHE COMPLETED A HCP RECENTLY, COPY REQUESTED PCP: RYAN CHOW DCP: HOME NO SERVICES VIA PRIVATE TRANSPORT
[2023-07-05 15:33] VITALS: BP 139/65; PULSE 79; RESP 18; TEMP 37.1; O2SAT 100
[2023-07-05 19:41] VITALS: BP 118/63; PULSE 73; RESP 16; TEMP 37.1; O2SAT 99
[2023-07-05] MEDS: Enoxaparin Sodium 40 MG/0.4 ML SYRINGE SUBCUT (19:53)
[2023-07-05] MEDS: cefTRIAXone sodium 2 GM in 0.9 % Sodium Chloride 50 ML IV (19:53)
[2023-07-06] MEDS: 0.9 % Sodium Chloride Flush 3 ML SYRINGE IVFLUSH ×4 (00:23→23:24)
[2023-07-06] MEDS: Acetaminophen 325 MG TABLET 650 MG PO ×2 (02:45→14:19)
[2023-07-06 03:06] VITALS: BP 117/57; PULSE 72; RESP 14; TEMP 36.2; O2SAT 100
[2023-07-06 07:02] VITALS: BP 149/67; PULSE 58; RESP 18; TEMP 37.2; O2SAT 100
[2023-07-06] MEDS: amLODIPine Besylate 2.5 MG TABLET PO (08:04)
--- NOTE | 2023-07-06 11:50 | MHC.CM.PN ---
GRAM (-) RODS PLAN IS 2 G CEFTRIAXONE DAILY AND ID CONSULT
[2023-07-06 14:16] VITALS: TEMP 38.4
[2023-07-06 15:23] VITALS: BP 130/71; PULSE 71; RESP 18; TEMP 36.4; O2SAT 99
--- NOTE | 2023-07-06 16:23 | P.PNIM_ITS ---
Subjective Subjective Date of Service: 07/06/23 Interval History: Pyelonephritis, still has back pain and fever Review of Systems Intermittent fevers, Denies any nausea vomiting or abdominal pain. Saying she is urinating better Physical Exam 2 Vital Signs: Vital Signs: Last Vital Signs Temp 97.5 F 07/06/23 15:23 Pulse 71 07/06/23 15:23 Resp 18 07/06/23 15:23 BP 130/71 07/06/23 15:23 Pulse Ox 99 07/06/23 15:23 O2 Del Method Room Air 07/06/23 15:23 BMI result Body Mass Index 37.5 Appearance: Alert.? Oriented X3.? cvs: rrr, [id number] , no murmur res: clear to auscultation ,no rhonchii or wheezing abd: no rebound or guarding ,nt, bs present. :left sided cva tenderness ,no other back pain ext pulses present , no cyanosis . neuro: axo3 , nonfocal. Objective Data Active Medications Acetaminophen (Acetaminophen 325 Mg Tablet) 650 mg PO Q6H PRN PRN Reason: Pain, Mild (Pain Scale 1-3) Last Admin: 07/06/23 14:19 Dose: 650 mg Documented By: CRIS Amlodipine Besylate (Amlodipine Besylate 2.5 Mg Tablet) 2.5 mg PO DAILY [facility]; Protocol Last Admin: 07/06/23 08:04 Dose: 2.5 mg Documented By: CRIS Enoxaparin Sodium (Enoxaparin Sodium 40 Mg/0.4 Ml Syringe) 40 mg SUBCUT Q24H [facility] Last Admin: 07/05/23 19:53 Dose: 40 mg Documented By: SEYMOUR Ceftriaxone Sodium 2 gm/ (Sodium Chloride) 50 mls @ 100 mls/hr IV Q24H [facility] Last Infusion: 07/05/23 20:29 Dose: Infused Documented By: SEYMOUR Melatonin (Melatonin 3 Mg Tablet) 6 mg PO BEDTIME PRN PRN Reason: Insomnia Morphine Sulfate (Morphine Sulfate 4 Mg/Ml Cartridge) 4 mg IVPUSH Q4H PRN; Protocol PRN Reason: Pain, Severe (Pain Scale 7-10) Last Admin: 07/05/23 17:16 Dose: 4 mg Documented By: SEYMOUR Ondansetron HCl (Ondansetron Hcl 4 Mg/2 Ml Vial) 4 mg IVPUSH Q8H PRN PRN Reason: Nausea and Vomiting Sodium Chloride (0.9 % Sodium Chloride Flush 3 Ml Syringe) 3 ml IVFLUSH QSHIFT [facility] Last Admin: 07/06/23 15:03 Dose: 3 ml Documented By: BEIT Labs 07/05/23 05:17 07/05/23 05:17 Microbiology Microbiology Results: Microbiology 07/04/23 20:44 Blood Culture - Preliminary Blood - Venous Gram negative fatuma 07/04/23 19:52 Blood Culture - Preliminary Blood - Venous Gram negative fatuma 07/04/23 Unknown Urine Culture - Final Urine clean catch - Urine louise top Escherichia coli Assessment and Plan (1) Pyelonephritis: Status: Acute Assessment and Plan: 63-year-old female with pertinent history of essential hypertension, mixed hyperlipidemia presents to the emergency department for evaluation of abdominal pain. Sepsis due to left-sided acute pyelonephritis, no fever, wbc normal. has intermittent fevers ,has left cv tenderness urine e coli sensstive to ceftriaxone blood culture -grma neg fatuma continue Ceftriaxone and change to PO Ceftin at discharge for 10 days Hypokalemia: Repleted and resolved Essential hypertension: on Norvasc 2.5 mg daily, hold Losartan and hctz, BP is normal DVT prophylaxis: Lovenox Need for inpt: acute pyelonephritis, sepsis : symptomatic ,blood culture positive -awaiting identification and sensitivity, continue IV antibiotics. Quality Stroke Does the patient have a stroke diagnosis?: No VTE Prior VTE?: No VTE Risk Level:: Medical - moderate - high VTE Device Contraindication: Treatment Not Indicated VTE Drug Contraindication: N/A - Med Ordered
[2023-07-06] MEDS: Dicyclomine HCl 10 MG CAPSULE 20 MG PO ×2 (17:27→23:27)
[2023-07-06] MEDS: ondansetron HCL 4 MG/2 ML VIAL IVPUSH (17:27)
[2023-07-06] MEDS: Enoxaparin Sodium 40 MG/0.4 ML SYRINGE SUBCUT (19:39)
[2023-07-06] MEDS: cefTRIAXone sodium 2 GM in 0.9 % Sodium Chloride 50 ML IV (19:39)
[2023-07-06 19:59] VITALS: BP 124/67; PULSE 58; RESP 18; TEMP 36.6; O2SAT 99
[2023-07-07 03:47] VITALS: BP 136/71; PULSE 66; RESP 18; TEMP 36.7; O2SAT 100
[2023-07-07 07:37] VITALS: BP 122/84; PULSE 62; RESP 18; TEMP 36.1; O2SAT 100
[2023-07-07] MEDS: Ascorbic Acid 500 MG TABLET PO (07:52)
[2023-07-07] MEDS: 0.9 % Sodium Chloride Flush 3 ML SYRINGE IVFLUSH (07:53)
[2023-07-07] MEDS: amLODIPine Besylate 2.5 MG TABLET PO (07:53)
[2023-07-07] MEDS: cefuroxime axetiL 500 MG TABLET PO (09:24)
--- NOTE | 2023-07-07 12:08 | PM.DS ---
DS: Providers Provider Date of Service: 07/07/23 Date of admission: 07/04/23 19:51 Date of discharge: 07/07/23 Primary care physician: Araseli Gutierrez MD Attending physician on discharge: Dejuan Talamantes Discharging clinician: Dejuan Talamantes DS: Diagnosis Discharge Diagnosis (1) Pyelonephritis: Status: Acute DS: Summary Hospital Course Hospital Course: 63-year-old female with pertinent history of essential hypertension, mixed hyperlipidemia presents to the emergency department for evaluation of abdominal pain. Patient states she started having left-sided abdominal discomfort 2 days prior to presentation. It is associated with chills, nausea and vomiting. No dysuria or urinary hesitancy. The abdominal discomfort is constant, nonradiating and without any relieving factors. No chest pain, palpitations, shortness of breath, changes in bowel habits. Does have a history of UTI. In the emergency department, patient was found to be septic and imaging concerning for acute pyelonephritis. Hospital course: Time Attestation Discharge coordination time: Greater than 30 minutes Quality: Safe Use of Opioids Does Pt have an Active Cancer Diagnosis on the Problem List?: No Quality: Stroke Does the patient have a stroke diagnosis?: No Physical Exam Vital Signs: Vital Signs: Last Vital Signs Temp 96.9 F 07/07/23 07:37 Pulse 62 07/07/23 07:37 Resp 18 07/07/23 07:37 BP 122/84 07/07/23 07:37 Pulse Ox 100 07/07/23 07:37 O2 Del Method Room Air 07/07/23 07:37 BMI result Body Mass Index 37.5 Discharge Plan Discharge Anticipated Discharge Date/Time: 07/07/23 11:34 Patient Disposition: Home, Self-Care Discharge Diagnosis: Pyelonephritis Referrals: Araseli Gutierrez MD [Primary Care Provider] - 1 Week Discharge Medications: New cefuroxime axetil 500 mg Tablet 500 mg PO Q12H Qty: 20 0RF Continued amlodipine 2.5 mg tablet 2.5 mg PO DAILY ascorbate calcium (vitamin C) 500 mg tablet 500 mg PO DAILY dicyclomine 20 mg tablet 20 mg PO QID PRN (Reason: Diarrhea) Held losartan 100 mg tablet 100 mg PO DAILY Hold Instructions: Resume on 07/12/23. hydrochlorothiazide 12.5 mg tablet 12.5 mg PO BID Hold Instructions: Resume on 07/12/23. Discontinued naproxen 500 mg tablet 500 mg PO BID PRN (Reason: Pain) Discharge Orders: Discharge Order (Routine); Ordered 07/07/23 Ordered By: Dejuan Talamantes Diet: Advance to usual diet Activity on Discharge: As tolerated Stand Alone Forms: Patient Portal Discharge page Care Plan Goals: Patient was initially came to the hospital because of abdominal pain,, chills and nausea vomiting: Further workup found to have abnormal UA and CT abdomen shows possible pyelonephritis: Patient was started on IV antibiotics and blood cultures sent: Subsequently patient chills and fevers seems to be improved, also WBC improved normal, blood culture came back E coli sensitive to ceftriaxone: Seen by infectious disease patient is going home with p.o. Ceftin for 10 days. Hypokalemia repleted and resolved. avila improved significantly with hydration , encouraged for p.o. hydration, hold losartan and hydrochlorothiazide for now. Repeat BMP in 1 week and start back his medication as per PCP. Further management outpatient with PCP. Health Concerns: As above. Plan of Treatment: as above. Assessment: as above. Patient Instructions: Kidney Infection (ED) Discharge Date/Time: 07/07/23 12:51
--- NOTE | 2023-07-07 12:09 | MHC.CM.PN ---
order for home, self-care. CM acknowledge.
== END 2023-07-07 12:51 | disposition home or self-care (01) | DRG 690 ==
LOC: HO.ED 20:04 → HO.EDOVER 20:33 → HO.S3 23:55
PROVIDERS: Physician Assistant; Physician Assistant Medical; Admitting Provider Student in an Organized Health Care Education/Training Program; Emergency Provider Student in an Organized Health Care Education/Training Program; PCP Internal Medicine; Visit Provider Internal Medicine
DX: N10 Acute pyelonephritis (principal); E78.2 Mixed hyperlipidemia; I10 Essential (primary) hypertension; B96.20 Unspecified Escherichia coli [E. coli] as the cause of diseases classified elsewhere; E87.6 Hypokalemia; Z20.822 Contact with and (suspected) exposure to COVID-19; Z23 Encounter for immunization; Z79.899 Other long term (current) drug therapy
CPT/HCPCS: 0241U; 36415; 71260; 74177; 80048; 80053; 81001; 83605; 83690; 83735; 84484; 85007; 85025; 85027; 87040; 87077; 87086; 87088; 87186; 87205; 90686; 93005; 99285; J0696; J1650; J2270; J2405; Q9967

== ENCOUNTER → 2023-07-04 15:31 | Outpatient (BNV) | payer OTHER, SELFPAY | PROVIDERS: Emergency Provider Student in an Organized Health Care Education/Training Program; PCP Internal Medicine; Visit Provider Student in an Organized Health Care Education/Training Program | DX: N12 Tubulo-interstitial nephritis, not specified as acute or chronic (principal) | CPT/HCPCS: 99222; 99232; 99239 ==

== ENCOUNTER 2023-07-14 09:43 | Outpatient (REF) | payer OTHER, SELFPAY ==
[2023-07-14 14:37] LABS: MANUAL DIFF FLAG NO
[2023-07-14 14:42] LABS: Basophils Absolute Auto 0.1 X10*3/uL (0.0-0.2); Basophils Percent Auto 1.3 % (0-2); Eosinophils Absolute Auto 0.5 X10*3/uL (0.0-0.4); Eosinophils Percent Auto 5.3 % (0-4); Hematocrit 30.7 % (37.0-47.0); Hemoglobin 10.3 g/dl (12.0-16.0); Imm Gran Abs Auto 0.16 X10*3/uL (0.00-0.03); Imm Gran Pct Auto 1.7 % (0.0-0.4); Lymphocytes Absolute Auto 2.1 X10*3/uL (1.2-4.9); Lymphocytes Percent Auto 22.4 % (20-40); Mean Corpuscular HGB Conc 33.6 g/dl (31.0-35.0); Mean Corpuscular Hemoglobin 28.1 pg (27.0-33.0); Mean Corpuscular Volume 83.7 fL (80.0-98.0); Mean Platelet Volume 9.1 fL (9.4-12.3); Monocytes Absolute Auto 0.6 X10*3/uL (0.1-1.2); Monocytes Percent Auto 5.9 % (2-11); Neutrophils Absolute Auto 5.9 x10*3/uL (2.0-8.3); Neutrophils Percent Auto 63.4 % (45-73); Platelet Count 400 X10*3/uL (160-400); Red Blood Count 3.67 X10*6/uL (4.20-5.50); Red Cell Distribution Width 14.6 % (11.0-16.0); White Blood Count 9.4 X10*3/uL (4.8-10.8)
[2023-07-14 14:55] LABS: Anion Gap 13 (12-20); Blood Urea Nitrogen 11 mg/dL (9-16); Calcium 9.6 mg/dL (8.4-10.2); Carbon Dioxide 25 mmol/L (22-29); Chloride 105 mmol/L (96-108); Estimated Glomerular Filt Rate 54; Glucose Random 71 mg/dL (60-115); Sodium 139 mmol/L (135-145)
== END 2023-07-14 09:44 | disposition home or self-care (01) ==
LOC: CF 09:43
PROVIDERS: Visit Provider Internal Medicine
DX: N12 Tubulo-interstitial nephritis, not specified as acute or chronic (principal); N17.9 Acute kidney failure, unspecified
CPT/HCPCS: 36415; 80048; 85025

== ENCOUNTER 2023-07-17 17:26 | Emergency (ER) | payer OTHER, SELFPAY ==
--- NOTE | ~2023-07-17 | XR_ITS ---
EXAMINATION: XR THORACIC SPINE CLINICAL INFORMATION: Thoracic spine COMPARISON: CT chest 08/24/2022 TECHNIQUE: 3 views of the thoracic spine were obtained. FINDINGS: Severe degenerative changes are present throughout the thoracic spine. Vertebral body heights are maintained. Large flowing osteophytes are seen. Degenerative changes are seen in the visualized portion of the cervical spine as well. XR/XR thoracic spine 3V IMPRESSION: Severe degenerative changes throughout the thoracic spine. No acute fracture.
--- NOTE | ~2023-07-17 | CT_ITS ---
EXAMINATION: CT HEAD WITHOUT CONTRAST CLINICAL INFORMATION: Headache. COMPARISON: None available. TECHNIQUE: Contiguous axial imaging was performed from the skull base to vertex without intravenous administration of contrast. This CT examination was performed using dose optimization techniques as appropriate, variously including the following: *Automated exposure control *Adjustment of mA and/or kV according to patient size (this includes techniques or standardized protocols for targeted exams where dose is matched to indication/reason for exam; i.e. extremities or head) *Use of iterative reconstruction technique DLP: 666 mGy-cm FINDINGS: There is no acute intracranial hemorrhage or evidence of territorial infarction. No abnormal mass effect or midline shift is seen. Rangel to white matter differentiation is well preserved. There is mild patchy low attenuation change in the periventricular white matter spaces. The ventricles are normal in size. No extra-axial fluid collections are identified. The calvarium and scalp soft tissues are normal. The middle ear cavity and mastoid air cells are clear. The visualized paranasal sinuses are clear. CT/CT head/brain wo IV con IMPRESSION: 1. No acute intracranial pathology. 2. There is mild patchy low attenuation change in the periventricular white matter spaces, commonly associated with chronic microangiopathy.
[2023-07-17 17:46] VITALS: BP 131/75; PULSE 78; RESP 16; TEMP 37.3; O2SAT 98; BMI 36.6
--- NOTE | 2023-07-17 17:46 | ED_ITS ---
HPI - General Adult General Chief complaint: Back Pain/Injury Stated complaint: ? kidney infection Time Seen by Provider: 07/17/23 18:32 Source: patient, RN notes reviewed and old records reviewed Mode of arrival: ambulatory Limitations: no limitations History of Present Illness HPI narrative: Pt is a 63yo female who presents to the ED with a cc of throbbing head and neck pain. She states that she was discharged from the hospital on 07/07 for a kidney and blood infection and took the full course of antibiotics. Pt states that she was experiencing back pain and muscle spasms after discharge so went to her PCP this past Wed. Pt was prescribed cyclobenzaprine and tramadol to which she reports no effect. She states that this morning she started experiencing throbbing head and neck pain in addition to the mid-upper back pain. She states the pressure in her head as a 9/10 made worse when bending down. She took tylenol with no relief. She notes a fever of 100.1 before coming to the hospital. Related Data Home Medications Medication Instructions Recorded Confirmed amlodipine 2.5 mg tablet 2.5 mg PO DAILY 05/15/21 07/05/23 losartan 100 mg tablet 100 mg PO DAILY 05/15/21 07/05/23 hydrochlorothiazide 12.5 mg tablet 12.5 mg PO BID 07/21/22 07/05/23 ascorbate calcium (vitamin C) 500 500 mg PO DAILY 05/21/23 07/05/23 mg tablet dicyclomine 20 mg tablet 20 mg PO QID PRN Diarrhea 05/21/23 07/05/23 Previous Rx's Medication Instructions Recorded cefuroxime axetil 500 mg tablet 500 mg PO Q12H #20 tabs 07/07/23 morphine 15 mg immediate release 15 mg PO Q6H PRN severe pain 07/17/23 tablet (scale score 7-10) #14 tabs Allergies Allergy/AdvReac Type Severity Reaction Status Date / Time No Known Allergies Allergy Verified 07/17/23 17:50 [No Known Allergies*] Review of Systems 2 Constitutional: Constitutional: Denies chills, Reports daytime sleepiness (associates with cyclobenzaprine and tramadol use), Reports fever(s) and Reports headache(s) Eyes: Eyes: Denies change in vision ENT: Reports headache(s) and Reports neck pain Cardiovascular: Cardiovascular: Denies chest pain, Denies lightheadedness and Denies dyspnea Respiratory: Respiratory: Denies cough and Denies dyspnea Gastrointestinal: Gastrointestinal: Denies abdominal pain, Denies constipation, Denies diarrhea, Denies nausea and Denies vomiting Genitourinary: Genitourinary: Denies difficulty voiding, Denies dysuria and Denies urinary urgency Musculoskeletal: Musculoskeletal: Reports back pain, Reports neck pain, Denies numbness and Denies tingling Integumentary/Breasts: Skin/Breast: Denies rash Neurologic: Reports headache(s), Denies numbness and Denies tingling Endocrine: Endocrine: Denies polyuria PMFSH Past Medical History Medical History Right lower quadrant abdominal pain Pre-op examination Morbid obesity High cholesterol Hypertension Surgical History H/O colonoscopy Hx of tonsillectomy History of hysterectomy Total knee replacement status Social History Household Members: Spouse Housing: House Do you presently have visiting nurse or other home services: No Alcohol intake: current Alcohol intake frequency: holidays/special occasions only Patient Tobacco Use Status: Never used Tobacco Smoked in Last 30 Days: No Use of substances other than those prescribed or required for medical reasons: Yes Substance Use Type: Marijuana Substance Use Type Other:: medical marijuana Substance Use Frequency: Weekly Last Used Substance: Hours (ago) Advance Directives: No Advance Directives Information Provided: No Patient : No service: No Physical Exam ED Vital Signs: Vital Signs - 24 hr 07/17/23 17:46 07/17/23 19:39 07/17/23 22:03 Temperature 99.2 F 98.9 F Pulse Rate 78 70 75 Respiratory Rate 16 20 20 Blood Pressure 131/75 133/71 124/69 Pulse Oximetry 98 100 99 Oxygen Delivery Method Room Air Room Air Room Air BMI result Body Mass Index 36.6 Const General: cooperative, no acute distress, alert and awake Orientation/consciousness: patient oriented x3 HENMT Head: Yes normal to inspection, Yes normocephalic and Yes atraumatic Ears: hearing grossly normal bilaterally General nose exam: Normal external nose present Face and sinus: Yes normal facial exam Eyes General: appearance normal, both eyes and all related structures Eyelids: Yes eyelids normal Pupils: Equal, round and reactive pupils present EOM: EOMs intact bilaterally Direct Ophthalmoscopy: normal light reflex Neck Neck: Yes normal visual inspection, No full ROM (unable to flex chin to chest due to neck stiffness), Yes no meningeal signs and No positive Kernig's sign Resp Effort & Inspection: normal respiratory effort and able to speak in complete sentences Auscultation: clear to auscultation bilaterally Cardio Rate: regular rate Rhythm: regular rhythm Heart sounds: S1 normal heart sound present and S2 normal heart sound present GI Auscultation: normal bowel sounds General: No no CVA tenderness Back/Spine/Pelvis Back: No no CVA tenderness Cervical Spine: No step off deformity and other (tenderness to palpation of c- spine) Thoracic/Lumbar Spine: thoracic and lumbar spine normal to inspection, thoracic spinal tenderness at T1, at T2, at T3, at T4, at T5 and at T6 and No lumbar spinal tenderness Skin General skin exam: other (skin warm to the touch but dry) Neuro General: patient oriented x3 and no meningeal signs Cranial nerves: Yes CN's II-XII intact bilaterally, Yes Equal, round and reactive pupils present and Yes Ability to bilaterally elevate shoulders present Course Course Course Narrative: RME:?63 yo female hx of HTN, OA presents to the ED today with headache upon waking this am with photophobia. Additionally endorses back spasms all week. Saw her PCP who prescribed her a mm relaxer which has been helping. Denies vision changes, chest pain, sob. Seen here 07/04/23 for pyelo, admitted for 3 days. Completed abx. Denies fever, chills, hematuria, dysuria PE: exam nonfocal. + photophobia. no midline spinous tenderness. no cvat. Plan: labs Full HPI, ROS and PE to be performed by the primary ED provider. Reevaluation(s) Reevaluation #1: Discussed patient's workup with her, discussed with Dr. Haq as well who are all in agreement the patient is stable for discharge at this time. Blood cultures are pending. Urine cultures pending. Time: 23:03 Medications Administered Discontinued Medications Generic Name Dose Route Start Last Admin Trade Name Freq PRN Reason Stop Dose Admin Sodium Chloride 1,000 mls @ 999 mls/hr 07/17/23 20:15 07/17/23 21:58 Ns IV 07/17/23 21:15 Infused .Q1H1M KALEY Infusion Morphine Sulfate 4 mg 07/17/23 20:04 07/17/23 20:37 Morphine Sulfate 4 Mg/Ml Cartridge IVPUSH 07/17/23 20:05 4 mg ONCE ONE Administration Protocol Ondansetron HCl 4 mg 07/17/23 20:04 07/17/23 20:37 Ondansetron Hcl 4 Mg/2 Ml Vial IVPUSH 07/17/23 20:05 4 mg ONCE ONE Administration Medical Decision Making Medical Decision Making [facility] Narrative: 63-year-old female presents for evaluation of upper back pain. She is nontender in the cervical spine that is tender in the thoracic vertebrae and paraspinous region. Negative Kernig sign. The patient feels warm to touch but I repeated an oral temperature which was 98.2. She has no leukocytosis. However given her recent bacteremia will repeat blood cultures and a lactic acid. Will get x-ray thoracic spine. The patient has no abdominal pain or lower back pain at this time. UA is still pending Differential Diagnosis Differential Diagnoses: The differential diagnosis associated with the presentation includes (trapezius muscle spasms, tension headache, spinal stenosis, meningitis, complex migraine) Admission/Observation Consideration of admission/observation: Escalation of care including admission/observation considered Lab Data [facility] Lab Attestation statement: I reviewed the patient's lab results. No leukocytosis. The patient has a mild anemia consistent with baseline. No significant electrolyte abnormalities. 07/17/23 18:39 07/17/23 18:39 Labs: Lab Results 07/17/23 07/17/23 07/17/23 Range/Units 18:39 20:33 20:35 WBC 9.4 (4.8-10.8) X10*3/uL RBC 3.72 L (4.20-5.50) X10*6/uL Hgb 10.3 L (12.0-16.0) g/dl Hct 30.1 L (37.0-47.0) % MCV 80.9 (80.0-98.0) fL MCH 27.7 (27.0-33.0) pg MCHC 34.2 (31.0-35.0) g/dl RDW 14.2 (11.0-16.0) % Plt Count 362 (160-400) X10*3/uL MPV 8.2 L (9.4-12.3) fL Immature Gran % (Auto) 0.9 H (0.0-0.4) % Neut % (Auto) 75.9 H (45-73) % Lymph % (Auto) 11.0 L (20-40) % [place] % (Auto) 9.4 (2-11) % Eos % (Auto) 1.9 (0-4) % Baso % (Auto) 0.9 (0-2) % Lymph # (Auto) 1.0 L (1.2-4.9) X10*3/uL [place] # (Auto) 0.9 (0.1-1.2) X10*3/uL Eos # (Auto) 0.2 (0.0-0.4) X10*3/uL Baso # (Auto) 0.1 (0.0-0.2) X10*3/uL Abs Immat Gran (auto) 0.08 H (0.00-0.03) X10*3/uL Absolute Neuts (auto) 7.1 (2.0-8.3) x10*3/uL Absolute Nucleated RBC 0.000 (0.0-0.012) X10*3/uL Nucleated RBC % (auto) 0.0 (0.0-0.2) /100WBC Sodium 138 (135-145) mmol/L Potassium 4.0 (3.3-5.1) mmol/L Chloride 103 (96-108) mmol/L Carbon Dioxide 25 (22-29) mmol/L Anion Gap 14 (12-20) BUN 9 (9-16) mg/dL Creatinine 1.00 (0.5-1.4) mg/dL Estim Creat Clear Calc 69.1 Estimated GFR 56 Random Glucose 112 (60-115) mg/dL Lactic Acid 0.9 (0.5-2.0) mmol/L Calcium 9.8 (8.4-10.2) mg/dL Magnesium 1.9 (1.6-2.6) mg/dL Lipase 11 (8-78) U/L Urine Color Yellow Urine Appearance Cloudy Urine pH 6.0 (5.0-9.0) Ur Specific [place] 1.010 (1.005-1.025) Urine Protein Negative (Neg-Trace) mg/dL Urine Glucose (UA) Negative (Negative) mg/dL Urine Ketones Negative (Negative) mg/dL Urine Blood Trace H (Negative) Urine Nitrite Negative (Negative) Ur Leukocyte Esterase Small (1+) H (Negative) Urine RBC 0-2 (0-2) /HPF Urine WBC 21-50 H (0-5) /HPF Ur Squamous Epith Cells 6-10 (0-2) /HPF Urine Bacteria None Seen (None Seen) Hyaline Casts 0-2 (0-2) /LPF Influenza Type A (PCR) NEGATIVE (Negative) Influenza Type B (PCR) NEGATIVE (Negative) RSV RNA Qual (PCR) NEGATIVE (Negative) SARS-CoV-2 RNA (RT-PCR) NEGATIVE (Negative) Radiology Impression Discussion of test interpretation with radiology: I have reviewed the radiologist's reading. (No acute intracranial pathology) Independent Historian Clinical information obtained from an independent historian. History obtained from or confirmed by: Spouse External Record Review External record reviewed: Inpatient record Tests considered The following testing was considered but not selected: Considered lumbar puncture to evaluate for meningeal cause of her symptoms which I feel is most likely. I discussed with the patient and she declines which I feel is appropriate. Furthermore, the patient's pain is more thoracic area not her neck. It is tender to palpation and most consistent musculoskeletal origin. Prescription Management I considered prescription management with: Pain Medication Discharge Plan Discharge Clinical Impression: Back pain Patient Disposition: Home, Self-Care Instructions: Back Pain (ED) Additional Instructions: Your x-ray shows severe degenerative changes of your upper back. This is likely the cause of your back pain as well as muscle spasms Stop taking the tramadol Take morphine 50 mg every 6 hours as needed for pain I recommend that you trying to move around the house as if you remains stiff this will contribute to muscle spasms We will call you if your blood culture or urine culture results positive Follow-up with your primary doctor Prescriptions: New morphine 15 mg tablet 15 mg PO Q6H PRN (Reason: severe pain (scale score 7-10)) Qty: 14 0RF Rx Instructions: Partial Fill upon patient request. No Action cefuroxime axetil 500 mg Tablet 500 mg PO Q12H Qty: 20 0RF amlodipine 2.5 mg tablet 2.5 mg PO DAILY losartan 100 mg tablet 100 mg PO DAILY Hold Instructions: Resume on 07/12/23. hydrochlorothiazide 12.5 mg tablet 12.5 mg PO BID Hold Instructions: Resume on 07/12/23. ascorbate calcium (vitamin C) 500 mg tablet 500 mg PO DAILY dicyclomine 20 mg tablet 20 mg PO QID PRN (Reason: Diarrhea)
[2023-07-17 18:43] LABS: MANUAL DIFF FLAG NO
[2023-07-17 18:45] LABS: Basophils Absolute Auto 0.1 X10*3/uL (0.0-0.2); Basophils Percent Auto 0.9 % (0-2); Eosinophils Absolute Auto 0.2 X10*3/uL (0.0-0.4); Eosinophils Percent Auto 1.9 % (0-4); Hematocrit 30.1 % (37.0-47.0); Hemoglobin 10.3 g/dl (12.0-16.0); Imm Gran Abs Auto 0.08 X10*3/uL (0.00-0.03); Imm Gran Pct Auto 0.9 % (0.0-0.4); Mean Corpuscular HGB Conc 34.2 g/dl (31.0-35.0); Mean Corpuscular Hemoglobin 27.7 pg (27.0-33.0); Mean Corpuscular Volume 80.9 fL (80.0-98.0); Mean Platelet Volume 8.2 fL (9.4-12.3); Monocytes Absolute Auto 0.9 X10*3/uL (0.1-1.2); Monocytes Percent Auto 9.4 % (2-11); Neutrophils Absolute Auto 7.1 x10*3/uL (2.0-8.3); Neutrophils Percent Auto 75.9 % (45-73); Platelet Count 362 X10*3/uL (160-400); Red Blood Count 3.72 X10*6/uL (4.20-5.50); Red Cell Distribution Width 14.2 % (11.0-16.0); White Blood Count 9.4 X10*3/uL (4.8-10.8)
[2023-07-17 18:59] LABS: Anion Gap 14 (12-20); Blood Urea Nitrogen 9 mg/dL (9-16); Calcium 9.8 mg/dL (8.4-10.2); Carbon Dioxide 25 mmol/L (22-29); Chloride 103 mmol/L (96-108); Creatinine Clr Calc Pharmacy 69.1; Estimated Glomerular Filt Rate 56; Glucose Random 112 mg/dL (60-115); Lipase 11 U/L (8-78); Magnesium 1.9 mg/dL (1.6-2.6); Sodium 138 mmol/L (135-145)
[2023-07-17 19:39] VITALS: BP 133/71; PULSE 70; RESP 20; TEMP 37.2; O2SAT 100
[2023-07-17] MEDS: 0.9 % Sodium Chloride 1,000 ML 999 ML IV (20:37)
[2023-07-17] MEDS: Morphine Sulfate 4 MG/ML CARTRIDGE IVPUSH (20:37)
[2023-07-17] MEDS: ondansetron HCL 4 MG/2 ML VIAL IVPUSH (20:37)
[2023-07-17 20:50] LABS: Appearance Urine Cloudy; Color Urine Yellow; Glucose Urine UA Negative (Negative); Leukocyte Esterase Urine Small (1+) (Negative); Nitrite Urine Negative (Negative); UMIC TRIGGER UACC YES; Urine Blood Trace (Negative); Urine Ketones Negative (Negative); Urine Protein Negative (Neg-Trace)
[2023-07-17 20:55] LABS: Bacteria Urine None Seen (None Seen); Hyaline Casts Urine 0-2 /LPF (0-2); RBC Urine 0-2 /HPF (0-2); UACC Culture Trigger YES; WBC Urine 21-50 /HPF (0-5)
[2023-07-17 20:59] LABS: Lactic Acid 0.9 mmol/L (0.5-2.0)
[2023-07-17 21:26] LABS: Influenza A PCR NEGATIVE (Negative); Influenza B PCR NEGATIVE (Negative); Resp Syncy Virus RNA Qual PCR NEGATIVE (Negative); SARS COV2 PCR INHOUSE NEGATIVE (Negative)
[2023-07-17 22:03] VITALS: BP 124/69; PULSE 75; RESP 20; O2SAT 99
[2023-07-17 23:04] VITALS: BP 142/71; PULSE 74; RESP 18; O2SAT 97
== END 2023-07-17 23:19 | disposition home or self-care (01) ==
PROVIDERS: Physician Assistant; Physician Assistant Medical; Emergency Provider Emergency Medicine Emergency Medical Services; PCP Internal Medicine
DX: M54.6 Pain in thoracic spine (principal); N15.9 Renal tubulo-interstitial disease, unspecified; I10 Essential (primary) hypertension; E66.9 Obesity, unspecified; Z68.36 Body mass index [BMI] 36.0-36.9, adult; Z20.822 Contact with and (suspected) exposure to COVID-19; Z20.828 Contact with and (suspected) exposure to other viral communicable diseases
CPT/HCPCS: 0241U; 36415; 70450; 72072; 80048; 81001; 83605; 83690; 83735; 85025; 87040; 87086; 96360; 99284; J2270; J2405

== ENCOUNTER 2023-08-18 09:05 | Outpatient (REF) | payer OTHER, SELFPAY ==
[2023-08-18 14:57] LABS: Anion Gap 12 (12-20); Blood Urea Nitrogen 13 mg/dL (9-16); Calcium 9.7 mg/dL (8.4-10.2); Carbon Dioxide 26 mmol/L (22-29); Chloride 109 mmol/L (96-108); Cholesterol 215 mg/dL (<200); Estimated Glomerular Filt Rate > 60; Glucose Random 72 mg/dL (60-115); HDL Cholesterol 50 mg/dL (>40); LDL Cholesterol Calculated 149 mg/dL (<100); Potassium 3.6 mmol/L (3.3-5.1); Sodium 143 mmol/L (135-145); Triglycerides 80 mg/dL (<150)
== END 2023-08-18 09:06 | disposition home or self-care (01) ==
LOC: HO.CHCLDS 09:05
PROVIDERS: Visit Provider Internal Medicine
DX: I10 Essential (primary) hypertension (principal)
CPT/HCPCS: 36415; 80048; 80061

== ENCOUNTER 2023-09-03 13:48 | Outpatient (REF) | payer OTHER, SELFPAY ==
--- NOTE | ~2023-09-03 | XR_ITS ---
EXAMINATION: XR KNEE, RIGHT CLINICAL INFORMATION: Chronic pain. COMPARISON: Radiographs dated 02/09/2022. TECHNIQUE: Frontal, lateral and axial views of the right knee are submitted. FINDINGS: Bony alignment and mineralization are normal. There is marked narrowing of the medial joint space compartment. The lateral and patellofemoral joint space compartments are well-maintained. There is marked peripheral osteophyte formation of the medial and patellofemoral compartments. No fracture or dislocation is seen. There is no significant joint effusion. No foreign body is seen. XR/XR knee RT 3V IMPRESSION: 1. There is marked osteoarthritic change of the medial joint space compartment of the right knee, and there is moderate osteoarthritic change of the patellofemoral compartment. 2. No fracture, dislocation or significant joint effusion is seen.
== END 2023-09-03 13:49 | disposition home or self-care (01) ==
LOC: HO.XRAY 13:48
PROVIDERS: PCP Internal Medicine; Visit Provider Internal Medicine
DX: M17.11 Unilateral primary osteoarthritis, right knee (principal)
CPT/HCPCS: 73562

== ENCOUNTER 2024-01-24 09:26 | Emergency (ER) | payer OTHER, SELFPAY ==
--- NOTE | ~2024-01-24 | XR_ITS ---
EXAMINATION: XR ABDOMEN KUB CLINICAL INDICATION: Constipation. Vomiting. COMPARISON: 04/23/2020 TECHNIQUE: 2 views of the abdomen. FINDINGS: Imaged lung bases are clear. No abnormally dilated loops of small or large bowel are appreciated. No significant stool burden. The liver shadow is enlarged. Multilevel degenerative disc disease in the imaged thoracolumbar spine. Sclerotic changes of bilateral sacroiliac joints. Parasymphyseal subchondral sclerosis. XR/XR KUB IMPRESSION: Nonobstructive bowel gas pattern.
[2024-01-24 09:42] VITALS: BP 162/86; PULSE 65; RESP 18; TEMP 36.4; O2SAT 100; BMI 42.0
[2024-01-24 10:51] LABS: MANUAL DIFF FLAG NO
[2024-01-24 10:54] LABS: Basophils Percent Auto 0.4 % (0-2); Eosinophils Percent Auto 0.2 % (0-4); Hematocrit 34.6 % (37.0-47.0); Hemoglobin 12.1 g/dl (12.0-16.0); Imm Gran Abs Auto 0.08 X10*3/uL (0.00-0.03); Imm Gran Pct Auto 0.8 % (0.0-0.4); Lymphocytes Absolute Auto 1.8 X10*3/uL (1.2-4.9); Lymphocytes Percent Auto 18.7 % (20-40); Mean Corpuscular Hemoglobin 27.9 pg (27.0-33.0); Mean Corpuscular Volume 79.9 fL (80.0-98.0); Monocytes Absolute Auto 0.7 X10*3/uL (0.1-1.2); Monocytes Percent Auto 7.4 % (2-11); NRBC Pct Auto 0.2 /100WBC (0.0-0.2); Neutrophils Absolute Auto 7.1 x10*3/uL (2.0-8.3); Neutrophils Percent Auto 72.5 % (45-73); Platelet Count 306 X10*3/uL (160-400); Red Blood Count 4.33 X10*6/uL (4.20-5.50); Red Cell Distribution Width 14.5 % (11.0-16.0); White Blood Count 9.8 X10*3/uL (4.8-10.8)
[2024-01-24 11:09] LABS: Alanine Aminotransferase 19 U/L (0-31); Albumin Level 4.4 g/dL (3.5-5.0); Alkaline Phosphatase 122 U/L (39-117); Anion Gap 16 (12-20); Aspartate Amino Transferase 21 U/L (5-31); Bilirubin Direct 0.3 mg/dL (0.0-0.5); Bilirubin Total 0.7 mg/dL (0.0-1.0); Blood Urea Nitrogen 10 mg/dL (9-16); Calcium 10.7 mg/dL (8.4-10.2); Carbon Dioxide 24 mmol/L (22-29); Chloride 102 mmol/L (96-108); Creatinine Clr Calc Pharmacy 68.3; Estimated Glomerular Filt Rate 54; Glucose Random 109 mg/dL (60-115); Magnesium 1.7 mg/dL (1.6-2.6); Sodium 139 mmol/L (135-145); Total Protein 8.1 g/dL (6.5-8.0)
[2024-01-24 11:16] LABS: Potassium 2.8 mmol/L (3.3-5.1)
--- NOTE | 2024-01-24 11:18 | ECG_ITS ---
Test Reason : K+ Blood Pressure : / mmHG Vent. Rate : 054 BPM Atrial Rate : 054 BPM P-R Int : 138 ms QRS Dur : 084 ms QT Int : 460 ms P-R-T Axes : 050 -02 041 degrees QTc Int : 436 ms Sinus bradycardia Minimal voltage criteria for LVH, may be normal variant ( R in aVL ) Borderline ECG When compared with ECG of 04-JUL-2023 17:47, No significant change was found Referred By: Generic ED Physician Electronically Signed By:ISABEL CLARKE MD
[2024-01-24 11:40] VITALS: BP 188/76; PULSE 58; RESP 11; TEMP 37.1; O2SAT 97
--- NOTE | 2024-01-24 12:14 | ED_ITS ---
HPI - Abdominal Pain General Chief Complaint: Abdominal Pain Stated Complaint: constipation knee surgery month ago Time Seen by Provider: 01/24/24 11:53 Source: patient and family Mode of arrival: ambulatory Limitations: no limitations History of Present Illness ED Provider: Dr. [place] HPI narrative: Patient with severe constipation, she had been on oxycodone for over a month for her knee replacement, now with severe constipation. She denies rectal pain MD elicited complaint: abdominal pain Pertinent past history: constipation Onset (ago): day(s) Pain Consistency: constant Location: diffuse Severity: mild Quality: cramping Related Data Home Medications ?Medication ?Instructions ?Recorded ?Confirmed amlodipine 2.5 mg tablet 2.5 mg PO DAILY 05/15/21 07/05/23 losartan 100 mg tablet 100 mg PO DAILY 05/15/21 07/05/23 hydrochlorothiazide 12.5 mg tablet 12.5 mg PO BID 07/21/22 07/05/23 ascorbate calcium (vitamin C) 500 500 mg PO DAILY 05/21/23 07/05/23 mg tablet dicyclomine 20 mg tablet 20 mg PO QID PRN Diarrhea 05/21/23 07/05/23 Previous Rx's ?Medication ?Instructions ?Recorded cefuroxime axetil 500 mg tablet 500 mg PO Q12H #20 tabs 07/07/23 morphine 15 mg immediate release 15 mg PO Q6H PRN severe pain 07/17/23 tablet (scale score 7-10) #14 tabs lactulose 20 gram/30 mL oral 20 g (30 mL) PO TID #2,880 mL 01/24/24 solution psyllium seed (sugar) oral powder 1 tsp PO DAILY #1,254 grams 01/24/24 (Metamucil (sugar) oral powder) Allergies Allergy/AdvReac Type Severity Reaction Status Date / Time No Known Allergies Allergy Verified 01/24/24 09:44 [No Known Allergies*] Review of Systems Review of Systems Yes all other systems are reviewed and are negative Denies Sensory deficit (Neuro) PMFSH Past Medical History Medical History Right lower quadrant abdominal pain Pre-op examination Morbid obesity High cholesterol Hypertension Surgical History H/O colonoscopy Hx of tonsillectomy History of hysterectomy Total knee replacement status Social History Social History Household Members: Spouse Housing: House Do you presently have visiting nurse or other home services: No Alcohol intake: current Alcohol intake frequency: holidays/special occasions only Patient Tobacco Use Status: Never used Tobacco Substance Use Type: Marijuana Advance Directives: Yes Advance Directives Information Provided: No Advance Directives on File: No Do you have a plan to hurt others: No Plan service: No Physical Exam ED Vital Signs: Vital Signs - 24 hr 01/24/24 09:42 01/24/24 11:40 01/24/24 12:33 Temperature 97.5 F 98.8 F 98.8 F Pulse Rate 65 58 65 Respiratory Rate 18 11 L 18 Blood Pressure 162/86 H 188/76 H 164/58 H Pulse Oximetry 100 97 99 Oxygen Delivery Method Room Air Room Air Room Air BMI result Body Mass Index 42.0 Const Other: anxious General: healthy appearing Nutritional Appearance: obese Orientation/consciousness: oriented to person and patient oriented x3 Limitations: no limitations HENMT Head: Yes normal to inspection Ears: external ears normal General nose exam: Normal external nose present Mouth: Normal oral and palatal mucosa present and oropharynx normal Throat: Yes posterior oropharynx normal Eyes General: appearance normal, both eyes and all related structures Neck Neck: Yes normal visual inspection Chest Chest palpation & inspection: normal inspection of the chest Resp Auscultation: clear to auscultation bilaterally Cardio Jugular venous distension: no JVD Rate: regular rate Rhythm: regular rhythm Heart sounds: S1 normal heart sound present and S2 normal heart sound present GI Other: obese soft no focal tenderness Inspection: Yes normal to inspection Palpation (GI): Soft to palpation Auscultation: Hypoactive bowel sounds present General: Yes no CVA tenderness Back/Spine/Pelvis Back: no CVA tenderness Skin General skin exam: no rashes or lesions noted Neuro General: oriented to person and patient oriented x3 Cranial nerves: Yes CN's II-XII intact bilaterally Motor exam (neuro): 5/5 motor strength present throughout Sensory Exam: No Sensory deficit (Neuro) Extrem General: Yes normal to inspection Psych Appearance: grossly normal Course Reevaluation(s) Reevaluation #1: patient with xray that shows large stool burden, no perforation will start on lactulose followed by metamucil and have patient stop her oxycodone Time: 12:28 Medical Decision Making Differential Diagnosis Differential Diagnoses: The differential diagnosis associated with the presentation includes (constipation secondary to opiate use, abdominal perforation, impaction) Admission/Observation Consideration of admission/observation: Escalation of care including admission/observation considered (upon arrival patient considered for admission) Lab Data 01/24/24 10:45 01/24/24 10:45 Labs: Lab Results 01/24/24 Range/Units 10:45 WBC 9.8 (4.8-10.8) X10*3/uL RBC 4.33 (4.20-5.50) X10*6/uL Hgb 12.1 (12.0-16.0) g/dl Hct 34.6 L (37.0-47.0) % MCV 79.9 L (80.0-98.0) fL MCH 27.9 (27.0-33.0) pg MCHC 35.0 (31.0-35.0) g/dl RDW 14.5 (11.0-16.0) % Plt Count 306 (160-400) X10*3/uL MPV 9.0 L (9.4-12.3) fL Immature Gran % (Auto) 0.8 H (0.0-0.4) % Neut % (Auto) 72.5 (45-73) % Lymph % (Auto) 18.7 L (20-40) % [place] % (Auto) 7.4 (2-11) % Eos % (Auto) 0.2 (0-4) % Baso % (Auto) 0.4 (0-2) % Lymph # (Auto) 1.8 (1.2-4.9) X10*3/uL [place] # (Auto) 0.7 (0.1-1.2) X10*3/uL Eos # (Auto) 0.0 (0.0-0.4) X10*3/uL Baso # (Auto) 0.0 (0.0-0.2) X10*3/uL Abs Immat Gran (auto) 0.08 H (0.00-0.03) X10*3/uL Absolute Neuts (auto) 7.1 (2.0-8.3) x10*3/uL Absolute Nucleated RBC 0.020 H (0.0-0.012) X10*3/uL Nucleated RBC % (auto) 0.2 (0.0-0.2) /100WBC Sodium 139 (135-145) mmol/L Potassium 2.8 L* (3.3-5.1) mmol/L Chloride 102 (96-108) mmol/L Carbon Dioxide 24 (22-29) mmol/L Anion Gap 16 (12-20) BUN 10 (9-16) mg/dL Creatinine 1.04 (0.5-1.4) mg/dL Estim Creat Clear Calc 68.3 Estimated GFR 54 Random Glucose 109 (60-115) mg/dL Calcium 10.7 H D (8.4-10.2) mg/dL Magnesium 1.7 (1.6-2.6) mg/dL Total Bilirubin 0.7 (0.0-1.0) mg/dL Direct Bilirubin 0.3 (0.0-0.5) mg/dL AST 21 (5-31) U/L ALT 19 (0-31) U/L Alkaline Phosphatase 122 H (39-117) U/L Total Protein 8.1 H (6.5-8.0) g/dL Albumin 4.4 (3.5-5.0) g/dL Independent Interpretation I performed an independent interpretation of an: Plain X-Ray (KUB with large stool burden, no obstruction, ) Tests considered The following testing was considered but not selected: CT of abdomen considered but patient with soft abdomen, nontender no elevated WBC Chronic Conditions Patient?s care impacted by: Hypertension Discharge Plan Discharge Clinical Impression: Constipation Patient Disposition: Home, Self-Care Instructions: Constipation (ED) Prescriptions: New lactulose 20 gram/30 mL solution 20 g PO TID Qty: 2880 0RF Rx Instructions: take medication three times a day until stool becomes liquid Metamucil (sugar) Powder 1 tsp PO DAILY Qty: 1254 0RF No Action cefuroxime axetil 500 mg Tablet 500 mg PO Q12H Qty: 20 0RF morphine 15 mg tablet 15 mg PO Q6H PRN (Reason: severe pain (scale score 7-10)) Qty: 14 0RF Rx Instructions: Partial Fill upon patient request. amlodipine 2.5 mg tablet 2.5 mg PO DAILY losartan 100 mg tablet 100 mg PO DAILY Hold Instructions: Resume on 07/12/23. hydrochlorothiazide 12.5 mg tablet 12.5 mg PO BID Hold Instructions: Resume on 07/12/23. ascorbate calcium (vitamin C) 500 mg tablet 500 mg PO DAILY dicyclomine 20 mg tablet 20 mg PO QID PRN (Reason: Diarrhea) Referrals: Araseli Gutierrez MD [Primary Care Provider] - 5 days Print Language: Greek
[2024-01-24 12:33] VITALS: BP 164/58; PULSE 65; RESP 18; TEMP 37.1; O2SAT 99
[2024-01-24] MEDS: Lactulose 20 GM/30 ML SOLUTION 30 GM PO (12:46)
[2024-01-24] MEDS: Potassium Chloride ER 20 MEQ TAB.ER.PRT PO (12:46)
[2024-01-24 12:57] VITALS: BP 164/58; PULSE 65; RESP 18; TEMP 37.1; O2SAT 99
== END 2024-01-24 12:59 | disposition home or self-care (01) ==
PROVIDERS: Physician Assistant; Emergency Provider Emergency Medicine; PCP Internal Medicine
DX: K59.00 Constipation, unspecified (principal); I10 Essential (primary) hypertension; E78.00 Pure hypercholesterolemia, unspecified; F12.90 Cannabis use, unspecified, uncomplicated; E66.9 Obesity, unspecified; Z68.41 Body mass index [BMI] 40.0-44.9, adult; Z96.653 Presence of artificial knee joint, bilateral; Z79.891 Long term (current) use of opiate analgesic
CPT/HCPCS: 36415; 74018; 80048; 80076; 83735; 85025; 93005; 99283; 99284

== ENCOUNTER → 2024-01-24 11:18 | Outpatient (BNV) | payer OTHER, SELFPAY | PROVIDERS: Emergency Provider Emergency Medicine; PCP Internal Medicine; Visit Provider Internal Medicine Cardiovascular Disease | DX: R00.1 Bradycardia, unspecified (principal); R94.31 Abnormal electrocardiogram [ECG] [EKG] | CPT/HCPCS: 93010 ==

== ENCOUNTER 2024-02-25 17:24 | Outpatient (REF) | payer OTHER, SELFPAY | END 2024-02-25 17:25 | disposition home or self-care (01) | LOC: HO.LNP 17:24 | PROVIDERS: Visit Provider Registered Nurse | DX: R10.9 Unspecified abdominal pain (principal) | CPT/HCPCS: 87086; 87088; 87186 ==

== ENCOUNTER 2024-03-13 13:37 | Outpatient (REF) | payer OTHER, SELFPAY ==
[2024-03-13 13:57] LABS: MANUAL DIFF FLAG NO
[2024-03-13 14:38] LABS: Basophils Absolute Auto 0.1 X10*3/uL (0.0-0.2); Basophils Percent Auto 1.2 % (0-2); Eosinophils Absolute Auto 0.5 X10*3/uL (0.0-0.4); Eosinophils Percent Auto 6.6 % (0-4); Hematocrit 35.2 % (37.0-47.0); Hemoglobin 11.9 g/dl (12.0-16.0); Imm Gran Abs Auto 0.02 X10*3/uL (0.00-0.03); Imm Gran Pct Auto 0.3 % (0.0-0.4); Lymphocytes Absolute Auto 2.2 X10*3/uL (1.2-4.9); Lymphocytes Percent Auto 30.4 % (20-40); Mean Corpuscular HGB Conc 33.8 g/dl (31.0-35.0); Mean Corpuscular Hemoglobin 27.4 pg (27.0-33.0); Mean Corpuscular Volume 80.9 fL (80.0-98.0); Mean Platelet Volume 9.4 fL (9.4-12.3); Monocytes Absolute Auto 0.3 X10*3/uL (0.1-1.2); Monocytes Percent Auto 4.4 % (2-11); Neutrophils Absolute Auto 4.2 x10*3/uL (2.0-8.3); Neutrophils Percent Auto 57.1 % (45-73); Platelet Count 317 X10*3/uL (160-400); Red Blood Count 4.35 X10*6/uL (4.20-5.50); Red Cell Distribution Width 15.4 % (11.0-16.0); White Blood Count 7.3 X10*3/uL (4.8-10.8)
[2024-03-13 15:06] LABS: Alanine Aminotransferase 15 U/L (0-31); Albumin Level 4.3 g/dL (3.5-5.0); Alkaline Phosphatase 105 U/L (39-117); Anion Gap 14 (12-20); Aspartate Amino Transferase 16 U/L (5-31); Bilirubin Total 0.5 mg/dL (0.0-1.0); Blood Urea Nitrogen 8 mg/dL (9-16); Calcium 10.5 mg/dL (8.4-10.2); Carbon Dioxide 29 mmol/L (22-29); Chloride 105 mmol/L (96-108); Estimated Glomerular Filt Rate 50; Glucose Random 100 mg/dL (60-115); Lipase 18 U/L (8-78); Potassium 3.6 mmol/L (3.3-5.1); Sodium 144 mmol/L (135-145); Total Protein 7.7 g/dL (6.5-8.0)
[2024-03-13 15:21] LABS: TSH reflex Free T4 0.96 uIU/mL (0.32-4.0)
[2024-03-14 01:44] LABS: CT PCR NOT DETECTED (Not Detect.); NG PCR NOT DETECTED (Not Detect.)
[2024-03-14 09:41] LABS: Bacterial Vaginosis PCR POSITIVE (Negative); Candida Group PCR NOT DETECTED (Not Detect); Candida glab krusei PCR NOT DETECTED (Not Detect); Trichomonas vaginalis PCR NOT DETECTED (Not Detect)
== END 2024-03-13 13:38 | disposition home or self-care (01) ==
LOC: HO.LAB 13:37
PROVIDERS: PCP General Practice; Visit Provider General Practice
DX: R10.13 Epigastric pain (principal); E72 Other disorders of amino-acid metabolism; N12 Tubulo-interstitial nephritis, not specified as acute or chronic
CPT/HCPCS: 0352U; 80053; 83690; 84443; 85025; 87086; 87491; 87591

== ENCOUNTER 2024-03-14 10:40 | Outpatient (REF) | payer OTHER, SELFPAY | END 2024-03-14 10:41 | disposition home or self-care (01) | LOC: HO.LAB 10:40 | PROVIDERS: PCP Internal Medicine; Visit Provider General Practice | DX: Z13.89 Encounter for screening for other disorder (principal) ==

== ENCOUNTER 2025-02-19 10:52 | Outpatient (REF) | payer OTHER, SELFPAY ==
--- OUTSIDE RECORDS SUMMARY | 2025-02-19 11:41 | XMS_ITS | Encounter Summary ---
Author Organization [employer] Address [address] [place] [address] Care Team Providers Care Modeler Name Role Phone Araseli Gutierrez MD Primary Care Provider Reason for Visit * Reason Comments Med Refill Encounter Details Date Type Department Care Team ([facility] Contact Info) Description 01/22/2023 Refill [facility] [address] [facility] [place] [address] Araseli Gutierrez MD [address] [place] [address] Irritable bowel syndrome without diarrhea Social History Tobacco Use Types Packs/Day Years Used Date Smoking Tobacco: Never Smokeless Tobacco: Never Comments Unknown Sex and Gender Information Value Date Recorded Sex Assigned at Female 06/22/2022 10:31 AM EDT Legal Sex Female 10:31 AM EDT Gender Identity Choose not to disclose 10:31 AM EDT Sexual Orientation Choose not to disclose 2021 10:31 AM EDT COVID-19 Exposure Response Date Recorded In the last 10 days, have yo u been in contact with someone who was confirmed or suspected to have Coronavirus/COVID-19? No / Unsure 01/20/2023 11:00 AM EDT documented as of this encounter Plan of Treatment Upcoming Encounters Date Type Department Care Team (Late Contact Info) Description 05/14/2025 3:15 PM EDT Office Visit [facility] [address] [place] [address] Araseli Gutierrez MD [address] [place] [address] documented as of this encounter Visit Diagnoses Diagnosis Irritable bowel syndrome without diarrhea documented in this encounter Care Teams Modeler Relationship Specialty Start Date End Date Araseli Gutierrez MD [address] [place] [address] PCP - General Internal Medicine 01/30/19 documented as of this encounter
[2025-02-19 14:52] LABS: MANUAL DIFF FLAG NO
[2025-02-19 14:58] LABS: Basophils Absolute Auto 0.1 X10*3/uL (0.0-0.2); Basophils Percent Auto 1.5 % (0-2); Eosinophils Absolute Auto 0.5 X10*3/uL (0.0-0.4); Eosinophils Percent Auto 8.3 % (0-4); Hematocrit 35.7 % (37.0-47.0); Imm Gran Abs Auto 0.03 X10*3/uL (0.00-0.03); Imm Gran Pct Auto 0.5 % (0.0-0.4); Lymphocytes Absolute Auto 1.8 X10*3/uL (1.2-4.9); Mean Corpuscular HGB Conc 33.6 g/dl (31.0-35.0); Mean Corpuscular Hemoglobin 28.1 pg (27.0-33.0); Mean Corpuscular Volume 83.6 fL (80.0-98.0); Mean Platelet Volume 9.7 fL (9.4-12.3); Monocytes Absolute Auto 0.5 X10*3/uL (0.1-1.2); Monocytes Percent Auto 7.8 % (2-11); Neutrophils Percent Auto 50.9 % (45-73); Platelet Count 262 X10*3/uL (160-400); Red Blood Count 4.27 X10*6/uL (4.20-5.50); Red Cell Distribution Width 14.6 % (11.0-16.0); White Blood Count 5.9 X10*3/uL (4.8-10.8)
[2025-02-19 15:26] LABS: Alanine Aminotransferase 28 U/L (0-31); Albumin Level 4.1 g/dL (3.5-5.0); Alkaline Phosphatase 125 U/L (39-117); Anion Gap 11 (12-20); Aspartate Amino Transferase 25 U/L (5-31); Blood Urea Nitrogen 20 mg/dL (9-16); Calcium 9.5 mg/dL (8.4-10.2); Carbon Dioxide 28 mmol/L (22-29); Chloride 106 mmol/L (96-108); Cholesterol 178 mg/dL (<200); Glucose Random 87 mg/dL (60-115); HDL Cholesterol 54 mg/dL (>40); LDL Cholesterol Calculated 110 mg/dL (<100); Potassium 4.1 mmol/L (3.3-5.1); Sodium 141 mmol/L (135-145); Triglycerides 70 mg/dL (<150)
[2025-02-19 15:45] LABS: Bilirubin Total 0.5 mg/dL (0.0-1.0); Estimated Glomerular Filt Rate 45
[2025-02-20 04:31] LABS: HIV AB/AG Nonreactive (Nonreactive); HIV Num 1 0.05 S/CO (0.00-0.99); ~HepC Num1 0.16 S/CO (0.00-0.79); ~Hepatitis C Antibody Nonreactive (Nonreactive)
== END 2025-02-19 10:53 | disposition home or self-care (01) ==
LOC: HO.CHCLDS 10:52
PROVIDERS: Visit Provider Internal Medicine
DX: Z11.4 Encounter for screening for human immunodeficiency virus [HIV] (principal); I10 Essential (primary) hypertension
CPT/HCPCS: 36415; 80053; 80061; 84443; 85025; 86803; 87389

== ENCOUNTER 2025-04-04 09:22 | Outpatient (REF) | payer OTHER, SELFPAY ==
--- NOTE | ~2025-04-04 | US_ITS ---
EXAMINATION: US ABDOMEN HISTORY: Elevated alkaline phosphatase TECHNIQUE: Real-time grayscale ultrasound imaging of the abdomen was performed and images were reviewed. COMPARISON: There are no prior studies available for comparison. FINDINGS: Liver: The right lobe of the liver measures 16.3 cm in size. The left lobe of the liver measures 9.4 cm in size. The liver demonstrates normal homogeneous echotexture. No focal mass or intrahepatic biliary ductal dilatation is identified. There is normal hepatopedal flow in the portal vein. Gallbladder and biliary tree: The gallbladder is unremarkable, without evidence of calculi, wall thickening, or pericholecystic fluid. There is no sonographic Reyes sign. The common bile duct is normal in caliber measuring 3 mm. Kidneys: The right kidney measures 11.1 cm in length. The left kidney measures 10.1 cm in length. The kidneys are unremarkable, without evidence of masses, hydronephrosis, or calculi. Pancreas: The pancreatic head, neck, and body are unremarkable. The pancreatic tail is obscured by bowel gas. Spleen: The spleen is normal in size and contour, measuring 10.7 cm in length. Abdominal aorta and inferior vena cava: The visualized portions of the abdominal aorta and inferior vena cava are normal in caliber. There is no free fluid in the abdomen. US/US abdomen complete IMPRESSION: Unremarkable abdominal ultrasound. Electronically signed by: London Yeh MD 04/04/2025 10:08 AM EDT
--- OUTSIDE RECORDS SUMMARY | 2025-04-04 09:46 | XMS_ITS | Encounter Summary ---
Author Organization [employer] Address [address] [place] [address] Care Team Providers Care Mine Boss Name Role Phone Araseli Gutierrez MD Primary Care Provider Reason for Visit * Reason Comments Med Refill Encounter Details Date Type Department Care Team ([facility] Contact Info) Description 01/22/2023 Refill [facility] [address] [facility] [place] [address] Araseli Gutierrez MD [address] [place] [address] Irritable bowel syndrome without diarrhea Social History [...] Description 05/14/2025 3:15 PM EDT Office Visit [facility] [address] [place] [address] Araseli Gutierrez MD [address] [place] [address] documented as of this encounter Visit Diagnoses Diagnosis Irritable bowel syndrome without diarrhea documented in this encounter Care Teams Mine Boss Relationship Specialty Start Date End Date Araseli uGtierrez MD [address] [place] [address] PCP - General Internal Medicine 01/30/19 documented as of this encounter
== END 2025-04-04 09:23 | disposition home or self-care (01) ==
LOC: HO.US 09:22
PROVIDERS: PCP Internal Medicine; Visit Provider Internal Medicine
DX: R74.8 Abnormal levels of other serum enzymes (principal)
CPT/HCPCS: 76700

== ENCOUNTER → 2025-04-04 09:25 | Outpatient (BNV) | payer OTHER, SELFPAY | PROVIDERS: PCP Internal Medicine; Visit Provider Radiology Diagnostic Radiology | DX: R74.8 Abnormal levels of other serum enzymes (principal) | CPT/HCPCS: 76700 ==

== ENCOUNTER 2025-07-10 16:18 | Outpatient (REF) | payer OTHER, SELFPAY | END 2025-07-10 16:19 | disposition home or self-care (01) | LOC: HO.MAMMO 16:18 | PROVIDERS: PCP Internal Medicine; Visit Provider Internal Medicine | DX: Z12.31 Encounter for screening mammogram for malignant neoplasm of breast (principal) | CPT/HCPCS: 77063; 77067 ==

== ENCOUNTER → 2025-07-10 16:30 | Outpatient (BNV) | payer OTHER, SELFPAY | PROVIDERS: PCP Internal Medicine; Visit Provider Internal Medicine | DX: Z12.31 Encounter for screening mammogram for malignant neoplasm of breast (principal) | CPT/HCPCS: 77063; 77067 ==